=== PATIENT | male | born 1985 | race Two or more races ===

== ENCOUNTER 2020-10-11 14:04 | Outpatient (REF) | payer OTHER, SELFPAY ==
--- NOTE | 2020-10-11 16:16 | XR_ITS ---
EXAMINATION: XR SACROILIAC JOINTS CLINICAL INFORMATION: Pelvic pain. COMPARISON: None TECHNIQUE: 3 views of the sacroiliac joints FINDINGS: Bones and soft tissues are normal. No fracture. Alignment is anatomic. Sacroiliac joint spaces are well-maintained without erosions or surrounding sclerosis. XR/XR sacroiliac joint 1-2V IMPRESSION: Unremarkable sacroiliac joints.
--- NOTE | 2020-10-11 16:16 | XR_ITS ---
EXAMINATION: XR LUMBOSACRAL SPINE CLINICAL INFORMATION: Low back pain. COMPARISON: None TECHNIQUE: Three views of the lumbosacral spine. FINDINGS: The vertebral bodies and posterior elements are normal. The disc spaces are preserved and the vertebral alignment is normal. The paraspinal soft tissues are normal. XR/XR lumbar spine 2-3V IMPRESSION: Unremarkable lumbar spine.
--- NOTE | 2020-10-11 16:16 | XR_ITS ---
EXAMINATION: XR CERVICAL SPINE CLINICAL INFORMATION: Neck pain. COMPARISON: None TECHNIQUE: 3 views of the cervical spine were obtained. FINDINGS: There are no prevertebral soft tissue or bony abnormalities demonstrated. No compression fractures or subluxations are identified. Alignment is maintained at the atlanto-axial articulation. The disc spaces are preserved. No endplate changes are seen. The prevertebral soft tissues are normal. The foramina are patent. XR/XR cervical spine 3V IMPRESSION: Unremarkable cervical spine.
[2020-10-11 17:00] LABS: MANUAL DIFF FLAG NO
[2020-10-11 17:05] LABS: Basophils Percent Auto 0.5 % (0-2); Eosinophils Absolute Auto 0.4 X10*3/uL (0.0-0.4); Eosinophils Percent Auto 4.4 % (0-4); Hematocrit 40.4 % (42-52); Hemoglobin 13.5 g/dl (14.0-18.0); Imm Gran Abs Auto 0.07 X10*3/uL (0.00-0.03); Imm Gran Pct Auto 0.9 % (0.0-0.4); Lymphocytes Absolute Auto 2.5 X10*3/uL (1.2-4.9); Lymphocytes Percent Auto 31.4 % (20-40); Mean Corpuscular HGB Conc 33.4 g/dl (31.0-36.0); Mean Corpuscular Hemoglobin 30.6 pg (27.0-33.0); Mean Corpuscular Volume 91.6 fL (80-98); Mean Platelet Volume 9.4 fL (9.4-12.4); Monocytes Absolute Auto 0.7 X10*3/uL (0.1-1.2); Monocytes Percent Auto 8.8 % (2-11); Neutrophils Absolute Auto 4.3 X10*3/uL (2.0-8.3); Platelet Count 273 X10*3/uL (160-400); Red Blood Count 4.41 X10*6/uL (4.60-5.80); Red Cell Distribution Width 13.5 % (11.0-16.0)
[2020-10-11 17:26] LABS: Alanine Aminotransferase 21 U/L (0-40); Albumin Level 4.8 g/dL (3.5-5.0); Alkaline Phosphatase 80 U/L (39-117); Anion Gap 13 (12-20); Aspartate Amino Transferase 17 U/L (5-37); Bilirubin Total 0.5 mg/dL (0.0-1.0); Blood Urea Nitrogen 15 mg/dL (9-16); C Reactive Protein 0.29 mg/dL (< or = 0.50); Calcium 9.3 mg/dL (8.4-10.2); Carbon Dioxide 29 mmol/L (22-29); Chloride 104 mmol/L (96-108); Estimated Glomerular Filt Rate > 60; Glucose Random 74 mg/dL (60-115); Potassium 4.3 mmol/l (3.3-5.1); Sodium 142 mmol/L (135-145); Total Protein 7.4 g/dL (6.5-8.0)
[2020-10-11 18:44] LABS: Erythrocyte Sedimentation Rate 6 MM/HR (0-15)
[2020-10-15 17:51] LABS: HLA B27 Negative (Negative)
== END 2020-10-11 14:05 | disposition home or self-care (01) ==
LOC: HO.LAB 14:04
PROVIDERS: Visit Provider Student in an Organized Health Care Education/Training Program
DX: M13.80 Other specified arthritis, unspecified site (principal); Z79.899 Other long term (current) drug therapy
CPT/HCPCS: 36415; 72040; 72100; 72200; 80053; 85025; 85652; 86140; 86812; 99212

== ENCOUNTER 2020-11-13 14:20 | Outpatient (REF) | payer OTHER, SELFPAY ==
--- NOTE | 2020-11-13 14:22 | MR_ITS ---
EXAMINATION: MR PELVIS WITHOUT CONTRAST CLINICAL INFORMATION: Arthritis. Low back pain. COMPARISON: None TECHNIQUE: Anatomic and fluid sensitive MR sequences were used to examine the pelvis. Imaging was performed with attention to the region of the SI joints. No contrast administered. The technologist indicates the patient was unable to remain motionless. FINDINGS: There is some motion artifact. The SI joints are in normal alignment and are symmetric. There is no evidence of ankylosis or periarticular edema. There is no signal abnormality to suggest synovitis. There is no surrounding fluid. The visualized lower spine appears within normal limits. No paraspinal mass, collection or signal abnormality. The psoas and iliac is muscles are normal signal and symmetric in size. There are no enlarged pelvic lymph nodes. There is no free fluid. There is no suspicious pelvic mass. No suspicious abnormality of the nearly empty urinary bladder. MR/MR pelvis wo con IMPRESSION: 1. No evidence of sacroiliitis. No marrow edema or synovitis. 2. No etiology for back pain demonstrated.
== END 2020-11-13 14:21 | disposition home or self-care (01) ==
LOC: HO.MRI 14:20
PROVIDERS: Visit Provider Student in an Organized Health Care Education/Training Program
DX: M13.80 Other specified arthritis, unspecified site (principal)
CPT/HCPCS: 72195

== ENCOUNTER 2020-12-16 14:43 | Outpatient (REF) | payer OTHER, SELFPAY | END 2020-12-16 14:44 | disposition home or self-care (01) | LOC: HO.LAB 14:43 | PROVIDERS: Visit Provider Internal Medicine | DX: Z20.822 Contact with and (suspected) exposure to COVID-19 (principal) | CPT/HCPCS: 36415; C9803; U0003 ==

== ENCOUNTER → 2020-12-18 14:31 | Outpatient (BNVA) | payer OTHER, SELFPAY | PROVIDERS: Visit Provider Student in an Organized Health Care Education/Training Program | DX: Z76.89 Persons encountering health services in other specified circumstances (principal) ==

== ENCOUNTER 2021-01-04 07:10 | Outpatient (REF) | payer OTHER, SELFPAY ==
[2021-01-04 07:30] LABS: COVID-19 Test Negative (Negative)
== END 2021-01-04 07:11 | disposition home or self-care (01) ==
LOC: HO.EMPCOV 07:10
PROVIDERS: Visit Provider Internal Medicine
DX: Z20.822 Contact with and (suspected) exposure to COVID-19 (principal)
CPT/HCPCS: 36415; 87635; C9803

== ENCOUNTER 2021-03-03 15:16 | Outpatient (REF) | payer OTHER, SELFPAY ==
[2021-03-03 16:36] LABS: MANUAL DIFF FLAG NO
[2021-03-03 16:37] LABS: Basophils Percent Auto 0.5 % (0-2); Eosinophils Absolute Auto 0.3 X10*3/uL (0.0-0.4); Hematocrit 39.5 % (42-52); Hemoglobin 13.3 g/dl (14.0-18.0); Imm Gran Abs Auto 0.03 X10*3/uL (0.00-0.03); Imm Gran Pct Auto 0.4 % (0.0-0.4); Lymphocytes Percent Auto 26.4 % (20-40); Mean Corpuscular HGB Conc 33.7 g/dl (31.0-36.0); Mean Corpuscular Hemoglobin 31.1 pg (27.0-33.0); Mean Corpuscular Volume 92.5 fL (80-98); Mean Platelet Volume 9.9 fL (9.4-12.4); Monocytes Absolute Auto 0.7 X10*3/uL (0.1-1.2); Monocytes Percent Auto 9.9 % (2-11); Neutrophils Absolute Auto 4.4 X10*3/uL (2.0-8.3); Neutrophils Percent Auto 58.8 % (45-73); Platelet Count 248 X10*3/uL (160-400); Red Blood Count 4.27 X10*6/uL (4.60-5.80); Red Cell Distribution Width 12.8 % (11.0-16.0); White Blood Count 7.5 X10*3/uL (4.8-10.8)
[2021-03-03 17:11] LABS: Alanine Aminotransferase 18 U/L (0-40); Albumin Level 4.7 g/dL (3.5-5.0); Alkaline Phosphatase 84 U/L (39-117); Anion Gap 12 (12-20); Aspartate Amino Transferase 15 U/L (5-37); Bilirubin Total 0.5 mg/dL (0.0-1.0); Blood Urea Nitrogen 15 mg/dL (9-16); C Reactive Protein 0.23 mg/dL (< or = 0.50); Calcium 9.3 mg/dL (8.4-10.2); Carbon Dioxide 27 mmol/L (22-29); Chloride 108 mmol/L (96-108); Estimated Glomerular Filt Rate > 60; Glucose Random 85 mg/dL (60-115); Sodium 143 mmol/L (135-145); Total Protein 7.2 g/dL (6.5-8.0)
[2021-03-03 17:48] LABS: Erythrocyte Sedimentation Rate 3 MM/HR (0-15)
== END 2021-03-03 15:17 | disposition home or self-care (01) ==
LOC: HO.LAB 15:16
PROVIDERS: Visit Provider Student in an Organized Health Care Education/Training Program
DX: M13.80 Other specified arthritis, unspecified site (principal)
CPT/HCPCS: 36415; 80053; 85025; 85652; 86140

== ENCOUNTER 2021-05-10 09:29 | Outpatient (REF) | payer OTHER, SELFPAY ==
[2021-05-10 09:58] LABS: COVID-19 Test Negative (Negative); IDNOW Serial# 9DD0AD1C
== END 2021-05-10 09:30 | disposition home or self-care (01) ==
LOC: HO.LAB 09:29
PROVIDERS: Referring Provider Internal Medicine; Visit Provider Internal Medicine
DX: Z20.822 Contact with and (suspected) exposure to COVID-19 (principal)
CPT/HCPCS: 36415; 87635

== ENCOUNTER → 2021-06-24 08:02 | Outpatient (BNVA) | payer OTHER, SELFPAY | PROVIDERS: Visit Provider Student in an Organized Health Care Education/Training Program ==

== ENCOUNTER 2021-10-13 13:47 | Outpatient (REF) | payer SELFPAY ==
[2021-10-13 14:12] LABS: MANUAL DIFF FLAG NO
[2021-10-13 14:44] LABS: Basophils Absolute Auto 0.1 X10*3/uL (0.0-0.2); Basophils Percent Auto 0.7 % (0-2); Eosinophils Absolute Auto 0.5 X10*3/uL (0.0-0.4); Eosinophils Percent Auto 6.3 % (0-4); Hematocrit 40.8 % (42.0-52.0); Hemoglobin 13.6 g/dl (14.0-18.0); Imm Gran Abs Auto 0.07 X10*3/uL (0.00-0.03); Lymphocytes Absolute Auto 1.9 X10*3/uL (1.2-4.9); Lymphocytes Percent Auto 25.4 % (20-40); Mean Corpuscular HGB Conc 33.3 g/dl (31.0-36.0); Mean Corpuscular Hemoglobin 31.4 pg (27.0-33.0); Mean Corpuscular Volume 94.2 fL (80.0-98.0); Mean Platelet Volume 9.6 fL (9.4-12.4); Monocytes Absolute Auto 0.6 X10*3/uL (0.1-1.2); Monocytes Percent Auto 8.2 % (2-11); Neutrophils Absolute Auto 4.3 x10*3/uL (2.0-8.3); Neutrophils Percent Auto 58.4 % (45-73); Platelet Count 261 X10*3/uL (160-400); Red Blood Count 4.33 X10*6/uL (4.60-5.80); Red Cell Distribution Width 12.4 % (11.0-16.0); White Blood Count 7.4 X10*3/uL (4.8-10.8)
[2021-10-13 15:09] LABS: Alanine Aminotransferase 33 U/L (0-40); Albumin Level 4.4 g/dL (3.5-5.0); Alkaline Phosphatase 90 U/L (39-117); Anion Gap 10 (12-20); Aspartate Amino Transferase 18 U/L (5-37); Bilirubin Total 0.2 mg/dL (0.0-1.0); Blood Urea Nitrogen 10 mg/dL (9-16); C Reactive Protein 0.29 mg/dL (< or = 0.50); Calcium 9.2 mg/dL (8.4-10.2); Carbon Dioxide 29 mmol/L (22-29); Chloride 107 mmol/L (96-108); Estimated Glomerular Filt Rate > 60; Glucose Random 103 mg/dL (60-115); Potassium 4.1 mmol/L (3.3-5.1); Sodium 142 mmol/L (135-145); Total Protein 6.8 g/dL (6.5-8.0)
[2021-10-13 15:33] LABS: Erythrocyte Sedimentation Rate 5 MM/HR (0-15)
== END 2021-10-13 13:48 | disposition home or self-care (01) ==
LOC: HO.LAB 13:47
PROVIDERS: Visit Provider Nurse Practitioner Family
DX: M13.80 Other specified arthritis, unspecified site (principal)
CPT/HCPCS: 36415; 80053; 85025; 85652; 86140

== ENCOUNTER → 2021-10-14 13:59 | Outpatient (BNVA) | payer SELFPAY | PROVIDERS: Visit Provider Nurse Practitioner Family ==

== ENCOUNTER 2021-11-05 13:59 | Outpatient (REF) | payer OTHER, SELFPAY ==
[2021-11-07 20:32] LABS: TS Negative Control Passed; TS Panel A 0; TS Panel B 0; TS Positive Control Passed; TSpotTB Negative (Negative)
== END 2021-11-05 14:00 | disposition home or self-care (01) ==
LOC: HO.LAB 13:59
PROVIDERS: Visit Provider Nurse Practitioner Family
DX: Z11.1 Encounter for screening for respiratory tuberculosis (principal); M13.80 Other specified arthritis, unspecified site
CPT/HCPCS: 36415; 86481

== ENCOUNTER 2021-12-07 07:03 | Outpatient (REF) | payer OTHER, SELFPAY ==
[2021-12-07 07:45] LABS: COVID-19 Test Positive (Negative)
== END 2021-12-07 07:04 | disposition home or self-care (01) ==
LOC: HO.LAB 07:03
PROVIDERS: Visit Provider Internal Medicine
DX: Z20.822 Contact with and (suspected) exposure to COVID-19 (principal)
CPT/HCPCS: 87635

== ENCOUNTER 2022-02-05 13:35 | Outpatient (REF) | payer OTHER, SELFPAY ==
[2022-02-05 14:08] LABS: MANUAL DIFF FLAG NO
[2022-02-05 14:10] LABS: Basophils Percent Auto 0.4 % (0-2); Eosinophils Absolute Auto 0.2 X10*3/uL (0.0-0.4); Eosinophils Percent Auto 3.4 % (0-4); Hematocrit 41.1 % (42.0-52.0); Hemoglobin 13.9 g/dl (14.0-18.0); Imm Gran Abs Auto 0.03 X10*3/uL (0.00-0.03); Imm Gran Pct Auto 0.4 % (0.0-0.4); Lymphocytes Absolute Auto 2.8 X10*3/uL (1.2-4.9); Lymphocytes Percent Auto 39.5 % (20-40); Mean Corpuscular HGB Conc 33.8 g/dl (31.0-36.0); Mean Corpuscular Hemoglobin 31.4 pg (27.0-33.0); Mean Platelet Volume 9.3 fL (9.4-12.4); Monocytes Absolute Auto 0.6 X10*3/uL (0.1-1.2); Monocytes Percent Auto 9.2 % (2-11); Neutrophils Absolute Auto 3.3 x10*3/uL (2.0-8.3); Neutrophils Percent Auto 47.1 % (45-73); Platelet Count 260 X10*3/uL (160-400); Red Blood Count 4.42 X10*6/uL (4.60-5.80); Red Cell Distribution Width 12.8 % (11.0-16.0)
[2022-02-05 14:49] LABS: Alanine Aminotransferase 19 U/L (0-40); Albumin Level 4.6 g/dL (3.5-5.0); Alkaline Phosphatase 84 U/L (39-117); Anion Gap 14 (12-20); Aspartate Amino Transferase 16 U/L (5-37); Bilirubin Total 0.6 mg/dL (0.0-1.0); Blood Urea Nitrogen 10 mg/dL (9-16); C Reactive Protein 0.08 mg/dL (< or = 0.50); Calcium 9.7 mg/dL (8.4-10.2); Carbon Dioxide 24 mmol/L (22-29); Chloride 107 mmol/L (96-108); Estimated Glomerular Filt Rate > 60; Glucose Random 93 mg/dL (60-115); Potassium 4.2 mmol/L (3.3-5.1); Sodium 141 mmol/L (135-145); Total Protein 7.3 g/dL (6.5-8.0)
[2022-02-05 14:57] LABS: Erythrocyte Sedimentation Rate 2 MM/HR (0-15)
== END 2022-02-05 13:36 | disposition home or self-care (01) ==
LOC: HO.LAB 13:35
PROVIDERS: PCP Student in an Organized Health Care Education/Training Program; Visit Provider Nurse Practitioner Family
DX: M13.80 Other specified arthritis, unspecified site (principal)
CPT/HCPCS: 36415; 80053; 85025; 85652; 86140

== ENCOUNTER → 2022-03-26 14:28 | Outpatient (BNVA) | payer OTHER, SELFPAY | PROVIDERS: Visit Provider Nurse Practitioner Family | DX: Z13.89 Encounter for screening for other disorder (principal) ==

== ENCOUNTER 2022-06-23 14:23 | Outpatient (REF) | payer OTHER, SELFPAY ==
--- NOTE | ~2022-06-23 | CT_ITS ---
EXAMINATION: CT SOFT TISSUE NECK WITH CONTRAST CLINICAL INFORMATION: 37-year-old with dysphagia. COMPARISON: None TECHNIQUE: Following the intravenous administration of 60 mL of Omnipaque 350 intravenous contrast, helical imaging was performed in the axial plane with generation of coronal and sagittal reformatted images. This CT examination was performed using dose optimization techniques as appropriate, variously including the following: *Automated exposure control *Adjustment of mA and/or kV according to patient size (this includes techniques or standardized protocols for targeted exams where dose is matched to indication/reason for exam; i.e. extremities or head) *Use of iterative reconstruction technique DLP: 700.00 mGy-cm FINDINGS: Skull Base: The visualized intracranial structures appear grossly unremarkable within the limitations of the exam. The visualized calvarium is intact. The mastoids and middle ear cavities are unopacified. There is nasal septal deviation to the right with a nasal septal spur encroaching on the right middle meatus and right middle turbinate. The visualized paranasal sinuses are unopacified. The visualized intraorbital soft tissue structures are within normal limits. The bony skull base is grossly intact. Suprahyoid Neck: The nasopharynx, retropharynx, assistant professor of economics and parapharyngeal spaces appear symmetric and within normal limits. There are multiple small calcified tonsilloliths within the palatine tonsils bilaterally. The oropharynx is smoothly contoured. Unremarkable appearance to the soft palate. The major salivary glands appear within normal limits. The visualized oral tongue, base of the tongue and floor of the mouth structures are symmetric and intact. Scattered nonenlarged, nonpathologic-appearing lymph nodes are seen in the submandibular spaces and submental region. Bilateral IJ chain lymph nodes are noted, the largest of which measures 1.3 x 0.87 m on the right and 1.5 x 0.7 cm on the left with a nonpathologic appearance. Lingual tonsils, vallecula and epiglottis appear unremarkable. Infrahyoid Neck: The hypopharynx and larynx appear within normal limits. There is a subcentimeter partially calcified left thyroid lobe nodule. Otherwise the thyroid gland appears grossly within normal limits. Scattered nonenlarged bilateral IJ chain and level 5 lymph nodes are noted bilaterally. Normal appearance to the tracheoesophageal grooves. Visualized cervical esophagus appears grossly unremarkable within the limitations of the exam. Upper Chest: The visualized lung parenchyma is within normal limits. The visualized mediastinum is unremarkable. Skeletal: Skeletal structures appear intact. No significant cervical or thoracic spondylosis. Other Comments: None. CT/CT soft tissue neck w con IMPRESSION: 1. No specific cause for dysphagia identified. No soft tissue masses or lymphadenopathy. No significant spondylosis. 2. Subcentimeter left thyroid lobe nodule. Correlate with clinical history and follow-up as per clinical indications. 3. Marked nasal septal deviation to the right with a nasal septal spur encroaching on the right middle meatus.
[2022-06-23] MEDS: iohexoL 350 MG/ML 100 ML INFUS..BTL IV (15:21)
== END 2022-06-23 14:24 | disposition home or self-care (01) ==
LOC: HO.CT 14:23
PROVIDERS: Visit Provider Otolaryngology
DX: R13.10 Dysphagia, unspecified (principal)
CPT/HCPCS: 70491; Q9967

== ENCOUNTER 2022-07-16 15:01 | Outpatient (REF) | payer OTHER, SELFPAY ==
[2022-07-16 15:16] LABS: MANUAL DIFF FLAG NO
[2022-07-16 15:51] LABS: Basophils Percent Auto 0.5 % (0-2); Eosinophils Absolute Auto 0.2 X10*3/uL (0.0-0.4); Eosinophils Percent Auto 2.6 % (0-4); Hematocrit 42.1 % (42.0-52.0); Hemoglobin 14.2 g/dl (14.0-18.0); Imm Gran Abs Auto 0.06 X10*3/uL (0.00-0.03); Imm Gran Pct Auto 0.7 % (0.0-0.4); Lymphocytes Absolute Auto 2.6 X10*3/uL (1.2-4.9); Lymphocytes Percent Auto 32.2 % (20-40); Mean Corpuscular HGB Conc 33.7 g/dl (31.0-36.0); Mean Corpuscular Hemoglobin 31.1 pg (27.0-33.0); Mean Corpuscular Volume 92.1 fL (80.0-98.0); Mean Platelet Volume 9.7 fL (9.4-12.4); Monocytes Absolute Auto 0.7 X10*3/uL (0.1-1.2); Monocytes Percent Auto 8.8 % (2-11); Neutrophils Absolute Auto 4.5 x10*3/uL (2.0-8.3); Neutrophils Percent Auto 55.2 % (45-73); Platelet Count 259 X10*3/uL (160-400); Red Blood Count 4.57 X10*6/uL (4.60-5.80); Red Cell Distribution Width 12.6 % (11.0-16.0); White Blood Count 8.1 X10*3/uL (4.8-10.8)
[2022-07-16 16:13] LABS: Alanine Aminotransferase 18 U/L (0-40); Aspartate Amino Transferase 16 U/L (5-37); Estimated Glomerular Filt Rate > 60
[2022-07-16 16:23] LABS: Erythrocyte Sedimentation Rate 3 MM/HR (0-15)
[2022-07-16 16:47] LABS: Thyroid Stimulating Hormone 0.85 uIU/mL (0.32-4.0)
== END 2022-07-16 15:02 | disposition home or self-care (01) ==
LOC: HO.LAB 15:01
PROVIDERS: Absent Provider Otolaryngology; Visit Provider Nurse Practitioner Family
DX: E04.1 Nontoxic single thyroid nodule (principal); M13.80 Other specified arthritis, unspecified site; Z79.899 Other long term (current) drug therapy
CPT/HCPCS: 36415; 82565; 84443; 84450; 84460; 85025; 85652; 86140

== ENCOUNTER 2022-08-26 15:01 | Outpatient (REF) | payer OTHER, SELFPAY ==
--- NOTE | ~2022-08-26 | US_ITS ---
EXAMINATION: US THYROID CLINICAL INFORMATION: Left lobe nodule. COMPARISON: CT soft tissue neck 06/23/2022. TECHNIQUE: Linear transducer grayscale and color Doppler examination with attention to the region of the thyroid. FINDINGS: SIZE: Measurements of the thyroid lobes and nodules are given in sagittal, anteroposterior and transverse dimensions respectively. Right Thyroid Lobe: 5.2 x 1.8 x 2.0 cm, volume 9.8 mL. Parenchyma: The gland echotexture is homogeneous. Thyroid vascularity is normal. Left Thyroid Lobe: 5.1 x 1.8 x 2.0 cm, volume 9.6 mL. Parenchyma: The gland echotexture is homogeneous. Thyroid vascularity is normal. Isthmus: 0.3 cm in maximum AP dimension. Estimated total number of nodules greater than or equal to 1 cm: 1. Cell Attendant Helper nodules are described as follows: 1. Location: Left mid. Size: 1.1 x 0.9 x 1.0 cm, volume 0.5 mL. Nodule characteristics: Composition: Solid (2). Echogenicity: Hyperechoic (1). Shape: Not taller than wide (0). Margins: Smooth (0). Echogenic Foci: None (0). ACR TI-RADS total points: 3. ACR TI-RADS category: 3. 2. Location: Left inferior. Size: 0.5 x 0.5 x 0.5 cm, volume 0.1 mL. Nodule characteristics: Composition: Solid (2). Echogenicity: Hyperechoic (1). Shape: Not taller than wide (0). Margins: Ill-defined (0). Echogenic Foci: None (0). ACR TI-RADS total points: 3. ACR TI-RADS category: 3. NODES: No lymphadenopathy is seen in the tissue surrounding the thyroid gland. US/US thyroid IMPRESSION: 1.1 cm nodule left lobe nonsuspicious, category 3. Recommend continued ultrasound thyroid follow-up in one year. ACR TI-RADS RECOMMENDATION REFERENCE: Ultrasound-guided fine-needle aspiration, followup ultrasound, no further follow up. * TR1 (0 point) and TR 2 (2 points): No FNA or follow up. * TR3 (3 points): FNA if more than or equal to 2.5 cm in maximum dimension, followup ultrasound in 1, 3 and 5 years if 1.5 to 2.4 cm in maximum dimension. * TR4 (4-6 points): FNA if more than or equal to 1.5 cm in maximum dimension, followup ultrasound in 1, 2, 3 and 5 years if 1 to 1.4 cm in maximum dimension. * TR5 (more than or equal to 7 points): FNA if more than or equal to 1 cm in maximum dimension, followup ultrasound every year for 5 years if 0.5 to 0.9 cm in maximum dimension. * TR3, TR4 or TR5 nodules that are below the size threshold for followup receive no follow up.
== END 2022-08-26 15:02 | disposition home or self-care (01) ==
LOC: HO.US 15:01
PROVIDERS: Visit Provider Otolaryngology
DX: E04.1 Nontoxic single thyroid nodule (principal)
CPT/HCPCS: 76536

== ENCOUNTER 2023-01-20 11:42 | Day surgery (SDC) | payer OTHER, SELFPAY ==
[2023-01-15 16:31] VITALS: BMI 29.2
--- NOTE | 2023-01-19 13:43 | HO.ANESPROP2 ---
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) Seronegative arthritis (Acute) Past Medical History Medical History Seronegative arthritis Social History Social History Alcohol intake: never Patient Tobacco Use Status: Never used Tobacco Tobacco use type: Cigarette Cigarettes Per Day: 1 Meds Allergies Allergy/AdvReac Type Severity Reaction Status Date / Time No Known Allergies Allergy Verified 09/01/22 13:21 Home Medications Medication Instructions Recorded Confirmed Last Taken Type acetaminophen 500 mg tablet 1,000 mg PO Q6H PRN 10/11/20 09/01/22 Unknown History (Tylenol Extra Strength) celecoxib 200 mg capsule (Celebrex) 200 mg PO DAILY PRN 03/26/22 09/01/22 Unknown History methotrexate sodium 2.5 mg tablet 7.5 mg PO QWEEK 09/01/22 09/01/22 Unknown History Exam Exam Date and Time: January 19, 2023 1343 Height,Weight and Vital Signs: Height 6 ft Weight 97.976 kg Assessment and Plan Assessment Anesthesia Assessment: Chart Reviewed Documented by User: Petr Greco MD 01/20/23 18:13 HPI - Anesthesia Eval Consult details Narrative: 37yo M for Upper Endoscopy Arthritis PMFSH Past Medical History Medical History Seronegative arthritis Functional capacity: independent ambulation Family History Family history of problems with anesthesia: No Surgical History History of Problems with Anesthesia: No Social History Social History Alcohol intake: never Patient Tobacco Use Status: Never used Tobacco Tobacco use type: Cigarette Cigarettes Per Day: 1 Meds Allergies Allergy/AdvReac Type Severity Reaction Status Date / Time No Known Allergies Allergy Verified 09/01/22 13:21 Home Medications Medication Instructions Recorded Confirmed Last Taken Type acetaminophen 500 mg tablet 1,000 mg PO Q6H PRN 10/11/20 09/01/22 Unknown History (Tylenol Extra Strength) celecoxib 200 mg capsule (Celebrex) 200 mg PO DAILY PRN 03/26/22 09/01/22 Unknown History methotrexate sodium 2.5 mg tablet 7.5 mg PO QWEEK 09/01/22 09/01/22 Unknown History Exam Airway Mallampati Class: III TM Dist: >3cm Neck ROM: Full Loose/Missing/Broken Teeth: Yes Heart: S1,S2 Lungs: b/l breath sounds Assessment and Plan Assessment Anesthesia Assessment: Anesthesia Plan Discussed Final Anesthetic Review Family History of Problems with Anesthesia: No History of Problems with Anesthesia: No ASA Class: II Final Preanesthetic Review: Meds/Allgs Chart Reviewed and Consent Obtained/Reviewed Patient Risk: Intermediate Procedure Risk: Intermediate Anesthetic Plan Anesthetic Plan: MAC: Disposition: Standard PACU
[2023-01-20 12:19] VITALS: BP 97/66; PULSE 83; RESP 15; TEMP 36.4; O2SAT 95
[2023-01-20] MEDS: Lactated Ringers 1,000 ML 100 ML IVCONT (12:21)
--- NOTE | 2023-01-20 12:43 | MHC.SHP ---
Pre-Procedural Eval Section A Date of Service: 01/20/23 Section B Chief Complaint: Functional dyspepsia Details of Present Illness: dysphagia, reflux Relevant Family History (Specify if Yes): No Relevant Social History: None Present Medications: see Short Stay Collaborative assessment Medical History: Significant History (seroneg arthritis) History of Previous Operations: No relevant previous surgery Allergies: Allergies Allergy/AdvReac Type Severity Reaction Status Date / Time No Known Allergies Allergy Verified 09/01/22 13:21 Review of Systems Sugical H&P ROS: Negative: Constitution, Cardiovascular, Respiratory, Neurological, Psychiatric, Hem-Onc, Allergic/Immunologic, Gastrointestinal, Genitourinary, Musculoskeletal, Integumentary, Endocrine and Eyes/Ears/Nose/Throat Exam Surgical H&P Exam: Normal: HEENT, Normal: Heart, Normal: Lungs, Normal: Extremities, Normal: Abdomen, Normal: Skin and Normal: Neurological Plan Diagnosis/Plan: Unchanged I have reviewed the history and physical and performed a pertinent physical examination on my patient. No changes have occurred unless specified. Time Spent With Patient Time: Total time managing care of this patient today ____ minutes.
--- NOTE | 2023-01-20 12:49 | W.PM.OPN ---
Operative Note Operative Note Date of Service: 01/20/23 Narrative: Procedure Description: EGD Indication: GERD, dysphagia Anesthesia: MAC FLEXIBLE TRANSORAL UPPER GASTROINTESTINAL ENDOSCOPY UPPER ENDOSCOPY Consent: Indications for the procedure and potential complications of bleeding, perforation, reaction to medications and missed diagnosis were discussed with the patient and informed consent was obtained. Instrument: Olympus GIF H 190 J mid size upper endoscope Monitoring: Vital signs and clinical assessment, continuous EKG monitoring, Pulse oximetry, Carbon Dioxide monitoring and blood pressure monitoring were done throughout the procedure. Procedure: The patient was placed in the left lateral decubitis position and pre-procedure medications were administered and a bite block was placed. The endoscope was inserted into the mouth and advanced under direct vision to the third part of duodenum. A careful inspection was made as the upper endoscope was withdrawn including a retroflexed examination of the proximal stomach; Findings and interventions are described below. Findings: Larynx:normal Esophagus: GE junction at 44 cm, diaphragm hiatus at 44 cm, mild erythema at GEJ with incompetent LES, bx taken from GEJ, distal esophagus and proximal esophagus. Few white patches noted in distal esophagus appearing to be adeline. Balloon dilation done mid and proximal esophagus over the UES to 18 mm with no tears seen Stomach: Patchy gastric erythema. Biopsies were obtained. Grade 3 flap valve on retroflexed examination of the cardia. Incompetent LES noted Duodenum: Normal bulb and descending duodenum, bx taken Intervention: Biopsies as noted above, balloon dilation Impression/Findings: possible barretts possible adeline mild esophagitis patchy gastritis PLAN: await biopsy results check compliance with PPI, may need dose increase or change of formulation --other options are ARAT vs fundoplication, magnetic sphincter
[2023-01-20 13:35] VITALS: BP 98/55; PULSE 76; RESP 16; TEMP 36.4; O2SAT 96
[2023-01-20 14:02] VITALS: BP 99/63; PULSE 75; RESP 18; TEMP 36.4; O2SAT 98
== END 2023-01-20 15:22 | disposition home or self-care (01) ==
PROVIDERS: Visit Provider Internal Medicine Gastroenterology
PROC: 0DJ08ZZ Inspection of Upper Intestinal Tract, Via Natural or Artificial Opening Endoscopic (ICD-10-PCS; CPT 43235; principal; 2023-01-20 12:30)
DX: K30 Functional dyspepsia (principal); K21.9 Gastro-esophageal reflux disease without esophagitis; R13.10 Dysphagia, unspecified; K29.50 Unspecified chronic gastritis without bleeding; B96.81 Helicobacter pylori [H. pylori] as the cause of diseases classified elsewhere; B37.81 Candidal esophagitis; K22.4 Dyskinesia of esophagus; M06.00 Rheumatoid arthritis without rheumatoid factor, unspecified site; K44.9 Diaphragmatic hernia without obstruction or gangrene; Z79.899 Other long term (current) drug therapy
CPT/HCPCS: 43249; 43239; 88305; 88312; 88342; C1726

== ENCOUNTER 2023-02-12 14:41 | Outpatient (REF) | payer OTHER, SELFPAY ==
[2023-02-12 15:00] LABS: MANUAL DIFF FLAG NO
[2023-02-12 17:48] LABS: Basophils Absolute Auto 0.1 X10*3/uL (0.0-0.2); Basophils Percent Auto 0.6 % (0-2); Eosinophils Absolute Auto 0.2 X10*3/uL (0.0-0.4); Eosinophils Percent Auto 2.1 % (0-4); Hematocrit 42.7 % (42.0-52.0); Hemoglobin 14.3 g/dl (14.0-18.0); Imm Gran Abs Auto 0.05 X10*3/uL (0.00-0.03); Imm Gran Pct Auto 0.6 % (0.0-0.4); Lymphocytes Percent Auto 35.6 % (20-40); Mean Corpuscular HGB Conc 33.5 g/dl (31.0-36.0); Mean Corpuscular Hemoglobin 31.3 pg (27.0-33.0); Mean Corpuscular Volume 93.4 fL (80.0-98.0); Mean Platelet Volume 10.3 fL (9.4-12.4); Monocytes Absolute Auto 0.6 X10*3/uL (0.1-1.2); Monocytes Percent Auto 6.5 % (2-11); Neutrophils Absolute Auto 4.7 x10*3/uL (2.0-8.3); Neutrophils Percent Auto 54.6 % (45-73); Platelet Count 245 X10*3/uL (160-400); Red Blood Count 4.57 X10*6/uL (4.60-5.80); Red Cell Distribution Width 12.8 % (11.0-16.0); White Blood Count 8.6 X10*3/uL (4.8-10.8)
[2023-02-12 18:19] LABS: Alanine Aminotransferase 39 U/L (0-40); Albumin Level 4.6 g/dL (3.5-5.0); Alkaline Phosphatase 78 U/L (39-117); Anion Gap 14 (12-20); Aspartate Amino Transferase 28 U/L (5-37); Bilirubin Total 0.6 mg/dL (0.0-1.0); Blood Urea Nitrogen 12 mg/dL (9-16); C Reactive Protein < 0.10 mg/dL (< or = 0.50); Calcium 9.4 mg/dL (8.4-10.2); Carbon Dioxide 27 mmol/L (22-29); Chloride 107 mmol/L (96-108); Estimated Glomerular Filt Rate > 60; Glucose Random 77 mg/dL (60-115); Sodium 144 mmol/L (135-145)
[2023-02-12 18:29] LABS: Erythrocyte Sedimentation Rate 4 MM/HR (0-15)
== END 2023-02-12 14:42 | disposition home or self-care (01) ==
LOC: HO.LAB 14:41
PROVIDERS: Visit Provider Nurse Practitioner Family
DX: M13.80 Other specified arthritis, unspecified site (principal); Z20.2 Contact with and (suspected) exposure to infections with a predominantly sexual mode of transmission
CPT/HCPCS: 36415; 80053; 85025; 85652; 86140

== ENCOUNTER → 2023-03-01 11:46 | Outpatient (BNVA) | payer OTHER, SELFPAY | PROVIDERS: Visit Provider Internal Medicine | DX: Z13.89 Encounter for screening for other disorder (principal) ==

== ENCOUNTER 2023-06-17 13:36 | Outpatient (AMB) | payer OTHER, SELFPAY ==
--- NOTE | 2023-06-17 13:38 | A.OFFVIS_ITS ---
Intake Vital Signs 06/17/23 13:41 Height 6 ft Weight 218 lb BMI 29.6 BP 98/58 L Blood Pressure Location Rt brachial Position Sitting Respiration 16 Pulse 68 Pulse Source Pulse Oximeter Temp 97.1 F Temp Source Temporal Artery Scan Pulse Oximetry (%) 98 Oxygen Delivery Method Room Air Intake Visit Reasons: Follow Up Allergies No Known Allergies Allergy (Verified 06/17/23 13:43) Medication List - Last Reconciled 06/17/23 by Shirin Koroma MD acetaminophen (Tylenol Extra Strength) 1,000 mg PO Q6H PRN adalimumab (Humira(CF) Pen) 40 mg (0.4 mL) subcut Q2W esomeprazole magnesium (Nexium) 20 mg PO DAILY folic acid 1 mg PO DAILY methotrexate sodium 15 mg PO QWEEK metronidazole 500 mg PO TID 14 days sucralfate 10 mL PO BID HPI HPI Comments History of Present Illness Details This is a 38-year-old male with a seronegative arthritis (seronegative RA/PsA) who presents for follow-up. He is currently on 15 mg of methotrexate once weekly and Humira every other week. Doing fairly well overall. Gets intermittent pain on the outer aspect of his left ankle, usually in the morning, occasionally gets pain on the outside of his elbows associated with some stiffness. Takes an NSAID about once a month as needed for joint pain. Denies any psoriasis skin rashes however occasionally gets eczema like skin rashes on the dorsal aspect of his fingers rapidly improved with a steroid cream. [facility] Medical History Seronegative arthritis Thyroid nodule Family History Father HTN (hypertension) Psoriasis Mother No known health problems Maternal Aunt Rheumatoid arthritis Social History Alcohol intake: never Patient Tobacco Use Status: Never used Tobacco Tobacco use type: Cigarette Cigarettes Per Day: 1 Review of Systems [employer] [facility] [employer] Reports arthralgias Physical Exam Vital Signs: Last Vital Signs Temp 97.1 F 06/17/23 13:41 Pulse 68 06/17/23 13:41 Resp 16 06/17/23 13:41 BP 98/58 L 06/17/23 13:41 Pulse Ox 98 06/17/23 13:41 Oxygen Delivery Method Room Air 06/17/23 13:41 BMI result Body Mass Index 29.6 Const General: cooperative, healthy appearing and comfortable Nutritional Appearance: overweight Orientation/consciousness: patient oriented x3 Limitations: no limitations HEENT Head: Yes normocephalic and Yes atraumatic Mouth: moist mucous membranes Resp Effort & Inspection: normal respiratory effort and able to speak in complete sentences Skin General skin exam: no rashes or lesions noted Neuro General: patient oriented x3 Extrem Other: No active synovitis. Marly test 10-15 cm Negative Jennie's test bilaterally No nail pitting Results Reviewed Results Reviewed: US hands: no synovitis MRI right hand with enhancement around MCP joints and tenosynovitis. MRI pelvis: no sacroilitis Xray of L spine and C spine: unremarkable Assessment & Plan Assessment & Plan (1) Seronegative arthritis: Comment: Plaquenil: 02/2020 Sulfasalazine: 02/2020 Methotrexate: 03/2020-present Humira: September 2021- present Code(s): M13.80 - Other specified arthritis, unspecified site Plan: This is a 38-year-old male with seronegative arthritis (seronegative RA versus PsA) has a history of psoriasis in his family who presents for follow-up. Doing well overall on methotrexate 6 tablets once weekly and Humira every other week. Gets intermittent joint aches and stiffness. Continue methotrexate 15 mg once weekly and Humira every other week. Labs today and before next visit (2) assistant terminal manager methotrexate user: Code(s): Z79.899 - Other local company intermodal truck driver (current) drug therapy Plan: Side effects of MTX were discussed with the patient in detail including oral ulcers, elevated LFTs, abdominal discomfort, and possible pancytopenia. Will monitor with frequent labs to monitor for side effects. Advised patient to take folic acid daily to prevent complications of MTX. Labs today and before next visit in 5 months Check Infectious screening labs Orders: Orders Comprehensive Met. Panel 5 Months Z79.899 - Other shelter (current) drug therapy C Reactive Protein 5 Months Z79.899 - Other shelter (current) drug therapy Complete Blood Count Auto Diff 5 Months Z79.899 - Other local company intermodal truck driver (current) drug therapy Erythrocyte Sedimentation Rate 5 Months Z79.899 - Other shelter (current) drug therapy Comprehensive Met. Panel Today Z79.899 - Other local company intermodal truck driver (current) drug therapy C Reactive Protein Today Z79.899 - Other shelter (current) drug therapy Complete Blood Count Auto Diff Today Z79.899 - Other shelter (current) drug therapy Erythrocyte Sedimentation Rate Today Z79.899 - Other local company intermodal truck driver (current) drug therapy Hepatitis A,B,C Profile Today Z11.59 - Encounter for screening for other viral diseases T Spot TB Today Z11.7 - Encounter for testing for latent tuberculosis infection Coding Level of Care Code Est Pt Level 3 (91981) Diagnoses Seronegative arthritis M13.80 assistant terminal manager methotrexate user Z79.899
[2023-06-17 13:41] VITALS: BP 98/58; PULSE 68; RESP 16; TEMP 36.2; O2SAT 98; BMI 29.6
== END 2023-06-17 14:08 | disposition home or self-care (01) ==
PROVIDERS: Visit Provider Student in an Organized Health Care Education/Training Program
DX: M13.80 Other specified arthritis, unspecified site (principal); Z79.899 Other long term (current) drug therapy
CPT/HCPCS: 99213

== ENCOUNTER → 2023-06-17 13:36 | Outpatient (BNVA) | payer OTHER, SELFPAY | PROVIDERS: Visit Provider Student in an Organized Health Care Education/Training Program ==

== ENCOUNTER 2023-06-29 10:32 | Outpatient (REF) | payer OTHER, SELFPAY ==
--- NOTE | ~2023-06-29 | US_ITS ---
Ultrasound-guided biopsy of the left thyroid nodule INDICATIONS: 1.26 x 1.09 x 0.88 cm echogenic nodule in the midportion of the left lobe of the thyroid gland After informed written consent was obtained an official timeout was performed immediately prior to the procedure. PROCEDURE: Under ultrasound guidance 3 needle aspirates were obtained utilizing a 25-gauge needle. The specimens were analyzed by the pathology department and felt to be inadequate for diagnostic purposes. 2 additional biopsies were then obtained utilizing a 22-gauge biopsy needle. The patient tolerated procedure well. US/US biopsy thyroid IMPRESSION: Ultrasound-guided biopsy of the echogenic lesion in the posterior aspect of the left lobe of the thyroid gland
[2023-06-29] MEDS: Lidocaine HCl 1 % MPF 5 ML VIAL SUBCUT (12:03)
== END 2023-06-29 10:33 | disposition home or self-care (01) ==
LOC: HO.US 10:32
PROVIDERS: Visit Provider Internal Medicine
DX: E04.1 Nontoxic single thyroid nodule (principal)
CPT/HCPCS: 10005; 88172; 88173; 88177

== ENCOUNTER → 2023-06-29 10:34 | Outpatient (BNV) | payer OTHER, SELFPAY | PROVIDERS: Visit Provider Radiology Vascular & Interventional Radiology | DX: E04.1 Nontoxic single thyroid nodule (principal) | CPT/HCPCS: 10005 ==

== ENCOUNTER 2023-07-19 13:28 | Outpatient (REF) | payer OTHER, SELFPAY ==
[2023-07-21 14:47] LABS: H Pylori Breath Test Negative (Negative)
== END 2023-07-19 13:29 | disposition home or self-care (01) ==
LOC: HO.LNP 13:28
PROVIDERS: Visit Provider Internal Medicine Gastroenterology
DX: Z11.2 Encounter for screening for other bacterial diseases (principal)
CPT/HCPCS: 83013

== ENCOUNTER 2023-07-28 14:31 | Outpatient (REF) | payer OTHER, SELFPAY ==
[2023-07-28 14:49] LABS: MANUAL DIFF FLAG NO
[2023-07-28 15:18] LABS: Basophils Percent Auto 0.4 % (0-2); Eosinophils Absolute Auto 0.2 X10*3/uL (0.0-0.4); Hematocrit 41.6 % (42.0-52.0); Hemoglobin 14.7 g/dl (14.0-18.0); Imm Gran Abs Auto 0.04 X10*3/uL (0.00-0.03); Imm Gran Pct Auto 0.6 % (0.0-0.4); Lymphocytes Absolute Auto 3.2 X10*3/uL (1.2-4.9); Lymphocytes Percent Auto 44.4 % (20-40); Mean Corpuscular HGB Conc 35.3 g/dl (31.0-36.0); Mean Corpuscular Hemoglobin 31.5 pg (27.0-33.0); Mean Corpuscular Volume 89.1 fL (80.0-98.0); Mean Platelet Volume 9.7 fL (9.4-12.4); Monocytes Absolute Auto 0.5 X10*3/uL (0.1-1.2); Monocytes Percent Auto 7.2 % (2-11); Neutrophils Absolute Auto 3.2 x10*3/uL (2.0-8.3); Neutrophils Percent Auto 44.4 % (45-73); Platelet Count 239 X10*3/uL (160-400); Red Blood Count 4.67 X10*6/uL (4.60-5.80); Red Cell Distribution Width 12.9 % (11.0-16.0); White Blood Count 7.2 X10*3/uL (4.8-10.8)
[2023-07-28 15:55] LABS: Erythrocyte Sedimentation Rate 2 MM/HR (0-15)
[2023-07-28 17:00] LABS: Alanine Aminotransferase 49 U/L (0-40); Albumin Level 4.7 g/dL (3.5-5.0); Alkaline Phosphatase 78 U/L (39-117); Anion Gap 14 (12-20); Aspartate Amino Transferase 28 U/L (5-37); Bilirubin Total 0.7 mg/dL (0.0-1.0); Blood Urea Nitrogen 11 mg/dL (9-16); C Reactive Protein 0.12 mg/dL (< or = 0.50); Calcium 9.9 mg/dL (8.4-10.2); Carbon Dioxide 26 mmol/L (22-29); Chloride 107 mmol/L (96-108); Estimated Glomerular Filt Rate > 60; Glucose Random 100 mg/dL (60-115); Potassium 3.6 mmol/L (3.3-5.1); Sodium 143 mmol/L (135-145); Total Protein 7.4 g/dL (6.5-8.0)
[2023-07-28 17:16] LABS: Free T4 (Free Thyroxine) 1.06 ng/dL (0.71-1.85)
[2023-07-28 17:17] LABS: Thyroid Stimulating Hormone 1.14 uIU/mL (0.32-4.0)
[2023-07-29 08:45] LABS: HBS Num1 259.38 mIU/mL (0-7.99); HBc Num1 0.05 S/CO (0.00-0.79); HBsAGNum1 0.39 S/CO (0.00-0.99); Hepatitis A Antibody IgM 0.16 Index (0-0.79); Hepatitis B Core Antibody Nonreactive (Nonreactive); Hepatitis B Surface Antigen Negative (Negative); ~HepC Num1 0.09 S/CO (0.00-0.79); ~Hepatitis A Antibody IgM Nonreactive (Nonreactive); ~Hepatitis B Surface Antibody REACTIVE (Nonreactive); ~Hepatitis C Antibody Nonreactive (Nonreactive)
[2023-07-30 22:24] LABS: TS Negative Control Passed; TS Panel A 0; TS Panel B 0; TS Positive Control Passed; TSpotTB Negative (Negative)
== END 2023-07-28 14:32 | disposition home or self-care (01) ==
LOC: HO.LAB 14:31
PROVIDERS: PCP Student in an Organized Health Care Education/Training Program; Visit Provider Internal Medicine
DX: Z11.7 Encounter for testing for latent tuberculosis infection (principal); Z11.59 Encounter for screening for other viral diseases; E04.1 Nontoxic single thyroid nodule; Z72.89 Other problems related to lifestyle; Z79.899 Other long term (current) drug therapy
CPT/HCPCS: 36415; 80053; 84439; 84443; 85025; 85652; 86140; 86481; 86704; 86706; 86709; 86803; 87340

== ENCOUNTER 2023-11-19 15:41 | Outpatient (REF) | payer OTHER, SELFPAY ==
[2023-11-19 15:51] LABS: MANUAL DIFF FLAG NO
[2023-11-19 16:36] LABS: Basophils Absolute Auto 0.1 X10*3/uL (0.0-0.2); Basophils Percent Auto 0.6 % (0-2); Eosinophils Absolute Auto 0.2 X10*3/uL (0.0-0.4); Eosinophils Percent Auto 2.2 % (0-4); Hematocrit 41.7 % (42.0-52.0); Hemoglobin 14.3 g/dl (14.0-18.0); Imm Gran Abs Auto 0.03 X10*3/uL (0.00-0.03); Imm Gran Pct Auto 0.4 % (0.0-0.4); Lymphocytes Absolute Auto 3.7 X10*3/uL (1.2-4.9); Lymphocytes Percent Auto 44.6 % (20-40); Mean Corpuscular HGB Conc 34.3 g/dl (31.0-36.0); Mean Corpuscular Hemoglobin 31.9 pg (27.0-33.0); Mean Corpuscular Volume 93.1 fL (80.0-98.0); Mean Platelet Volume 9.9 fL (9.4-12.4); Monocytes Absolute Auto 0.7 X10*3/uL (0.1-1.2); Monocytes Percent Auto 8.1 % (2-11); Neutrophils Absolute Auto 3.7 x10*3/uL (2.0-8.3); Neutrophils Percent Auto 44.1 % (45-73); Platelet Count 244 X10*3/uL (160-400); Red Blood Count 4.48 X10*6/uL (4.60-5.80); Red Cell Distribution Width 13.2 % (11.0-16.0); White Blood Count 8.3 X10*3/uL (4.8-10.8)
[2023-11-19 17:31] LABS: Erythrocyte Sedimentation Rate 3 MM/HR (0-15)
[2023-11-19 17:58] LABS: Alanine Aminotransferase 26 U/L (0-40); Albumin Level 4.7 g/dL (3.5-5.0); Alkaline Phosphatase 73 U/L (39-117); Anion Gap 11 (12-20); Aspartate Amino Transferase 21 U/L (5-37); Bilirubin Total 0.6 mg/dL (0.0-1.0); Blood Urea Nitrogen 11 mg/dL (9-16); C Reactive Protein 0.11 mg/dL (< or = 0.50); Carbon Dioxide 26 mmol/L (22-29); Chloride 109 mmol/L (96-108); Estimated Glomerular Filt Rate > 60; Glucose Random 83 mg/dL (60-115); Potassium 3.8 mmol/L (3.3-5.1); Sodium 142 mmol/L (135-145); Total Protein 7.4 g/dL (6.5-8.0)
== END 2023-11-19 15:42 | disposition home or self-care (01) ==
LOC: HO.LAB 15:41
PROVIDERS: Visit Provider Student in an Organized Health Care Education/Training Program
DX: M13.80 Other specified arthritis, unspecified site (principal); Z79.899 Other long term (current) drug therapy
CPT/HCPCS: 36415; 80053; 85025; 85652; 86140

== ENCOUNTER 2023-11-23 13:46 | Outpatient (AMB) | payer OTHER, SELFPAY ==
--- NOTE | 2023-11-23 13:47 | A.OFFVIS_ITS ---
Intake Vital Signs 11/23/23 13:53 Height 6 ft Weight 206 lb 9.17 oz BMI 28.0 BP 90/62 Blood Pressure Location Rt brachial Position Sitting Pulse 63 Pulse Source Pulse Oximeter Temp 97 F Temp Source Skin Pulse Oximetry (%) 98 Oxygen Delivery Method Room Air Intake Visit Reasons: PsA Intake Note: Patient last seen 06/17/23, presents today for follow up and test results. MTX 3 tabs a week. Assistant Shift Supervisor Required: No Accompanied by: Self / Same As Patient Allergies No Known Allergies Allergy (Verified 11/23/23 13:47) Medication List - Last Reconciled 11/23/23 by Shirin Koroma MD acetaminophen (Tylenol Extra Strength) 1,000 mg PO Q6H PRN adalimumab (Humira(CF) Pen) 40 mg (0.4 mL) subcut Q2W esomeprazole magnesium (Nexium) 20 mg PO DAILY fluconazole 200 mg PO DAILY folic acid 1 mg PO DAILY methotrexate sodium 7.5 mg PO QWEEK metronidazole 500 mg PO TID 14 days sucralfate 10 mL PO BID sumatriptan succinate 50 mg PO Q2-4H PRN HPI HPI Comments History of Present Illness Details This is a 38-year-old male with a seronegative arthritis (seronegative RA/PsA) who presents for follow-up. He is currently on 7.5 mg of methotrexate once weekly and Humira every other week. Lowering methotrexate from 15 mg weekly to 7.5 mg weekly did not make a difference. Doing fairly well overall. Gets intermittent pain on the outside of his elbows associated with some stiffness. Usually when leaning on his elbows. Denies any psoriasis skin rashes however occasionally gets eczema like skin rashes on the dorsal aspect of his fingers rapidly improved with a steroid cream. [facility] Medical History (Updated 11/23/23 @ 14:20 by Shirin Koroma MD) Thyroid nodule Seronegative arthritis Family History Father HTN (hypertension) Psoriasis Mother No known health problems Maternal Aunt Rheumatoid arthritis Social History Alcohol intake: never Patient Tobacco Use Status: Never used Tobacco Tobacco use type: Cigarette Cigarettes Per Day: 1 Review of Systems Musc Reports arthralgias Physical Exam Vital Signs: Last Vital Signs Temp 97 F 11/23/23 13:53 Pulse 63 11/23/23 13:53 BP 90/62 11/23/23 13:53 Pulse Ox 98 11/23/23 13:53 Oxygen Delivery Method Room Air 11/23/23 13:53 BMI result Body Mass Index 28.0 Const General: cooperative, healthy appearing and comfortable Nutritional Appearance: overweight Orientation/consciousness: patient oriented x3 Limitations: no limitations HEENT Head: Yes normocephalic and Yes atraumatic Mouth: moist mucous membranes Resp Effort & Inspection: normal respiratory effort and able to speak in complete sentences Skin General skin exam: no rashes or lesions noted Neuro General: patient oriented x3 Extrem Other: No active synovitis. Marly test 10-15 cm Negative Jennie's test bilaterally No nail pitting Results Reviewed Results Reviewed: US hands: no synovitis MRI right hand with enhancement around MCP joints and tenosynovitis. MRI pelvis: no sacroilitis Xray of L spine and C spine: unremarkable Assessment & Plan Assessment & Plan (1) Seronegative arthritis: Comment: Plaquenil: 02/2020 Sulfasalazine: 02/2020 Methotrexate: 03/2020-present Humira: September 2021- present Code(s): M13.80 - Other specified arthritis, unspecified site Plan: This is a 38-year-old male with seronegative arthritis (seronegative RA versus PsA) has a history of psoriasis in his family who presents for follow-up. Doing well overall on methotrexate 7.5 mg once weekly and Humira every other week. Continue methotrexate 7.5 mg once weekly and Humira every other week. Labs in 3 and in 6 months Follow-up in 6 months (2) senior care methotrexate user: Code(s): Z79.899 - Other usp (current) drug therapy Plan: monitor safety labs (3) Immunization counseling: Code(s): Z71.85 - Encounter for immunization safety counseling Plan: Patient received flu vaccine for this season. Advised patient to get the new COVID booster and hold methotrexate 2 weeks after vaccination Plan I spent 27 minutes reviewing patient's chart, evaluating patient, ordering diagnostic workup, counseling patient and documenting in the chart Orders: Orders Complete Blood Count Auto Diff 6 Months Z79.899 - Other usp (current) drug therapy Erythrocyte Sedimentation Rate 6 Months Z79.899 - Other usp (current) drug therapy Comprehensive Met. Panel 3 Months Z79.899 - Other terminal make up operator (current) drug therapy Erythrocyte Sedimentation Rate 3 Months Z79.899 - Other terminal make up operator (current) drug therapy C Reactive Protein 11/19/23 M13.80 - Other specified arthritis, unspecified site, Z79.899 - Other terminal make up operator (current) drug therapy Complete Blood Count Auto Diff 11/19/23 M13.80 - Other specified arthritis, unspecified site, Z79.899 - Other terminal make up operator (current) drug therapy Erythrocyte Sedimentation Rate 11/19/23 M13.80 - Other specified arthritis, unspecified site, Z79.899 - Other usp (current) drug therapy Comprehensive Met. Panel 11/19/23 M13.80 - Other specified arthritis, unspecified site, Z79.899 - Other terminal make up operator (current) drug therapy Comprehensive Met. Panel 6 Months Z79.899 - Other terminal make up operator (current) drug therapy C Reactive Protein 6 Months Z79.899 - Other terminal make up operator (current) drug therapy Complete Blood Count Auto Diff 3 Months Z79.899 - Other terminal make up operator (current) drug therapy C Reactive Protein 3 Months Z79.899 - Other terminal make up operator (current) drug therapy Medications: New methotrexate sodium 7.5 mg (3 x 2.5 mg) PO QWEEK 12 tabs 1RF Refilled adalimumab (Humira(CF) Pen) 40 mg (0.4 mL) subcut Q2W 4 ea 3RF M13.80 - Other specified arthritis, unspecified site folic acid 1 mg PO DAILY 90 tabs 1RF Coding Level of Care Code Est Pt Level 4 (71401) Diagnoses Seronegative arthritis M13.80 terminal make up operator methotrexate user Z79. Immunization counseling Z71.85
[2023-11-23 13:53] VITALS: BP 90/62; PULSE 63; TEMP 36.1; O2SAT 98; BMI 28.0
== END 2023-11-23 14:16 | disposition home or self-care (01) ==
PROVIDERS: Visit Provider Student in an Organized Health Care Education/Training Program
DX: M13.80 Other specified arthritis, unspecified site (principal); Z79.899 Other long term (current) drug therapy; Z71.85 Encounter for immunization safety counseling
CPT/HCPCS: 99214

== ENCOUNTER → 2023-11-23 13:46 | Outpatient (BNVA) | payer OTHER, SELFPAY | PROVIDERS: PCP Student in an Organized Health Care Education/Training Program; Visit Provider Student in an Organized Health Care Education/Training Program | DX: M13.80 Other specified arthritis, unspecified site (principal); Z79.899 Other long term (current) drug therapy ==

== ENCOUNTER 2024-04-07 16:05 | Outpatient (REF) | payer OTHER, SELFPAY ==
[2024-04-07 16:15] LABS: MANUAL DIFF FLAG NO
[2024-04-07 17:11] LABS: Basophils Absolute Auto 0.1 X10*3/uL (0.0-0.2); Basophils Percent Auto 0.6 % (0-2); Eosinophils Absolute Auto 0.2 X10*3/uL (0.0-0.4); Hematocrit 40.4 % (42.0-52.0); Hemoglobin 13.9 g/dl (14.0-18.0); Imm Gran Abs Auto 0.03 X10*3/uL (0.00-0.03); Imm Gran Pct Auto 0.4 % (0.0-0.4); Lymphocytes Absolute Auto 3.7 X10*3/uL (1.2-4.9); Lymphocytes Percent Auto 47.3 % (20-40); Mean Corpuscular HGB Conc 34.4 g/dl (31.0-36.0); Mean Corpuscular Hemoglobin 31.2 pg (27.0-33.0); Mean Corpuscular Volume 90.8 fL (80.0-98.0); Mean Platelet Volume 9.8 fL (9.4-12.4); Monocytes Absolute Auto 0.6 X10*3/uL (0.1-1.2); Monocytes Percent Auto 8.1 % (2-11); Neutrophils Absolute Auto 3.2 x10*3/uL (2.0-8.3); Neutrophils Percent Auto 40.6 % (45-73); Platelet Count 230 X10*3/uL (160-400); Red Blood Count 4.45 X10*6/uL (4.60-5.80); Red Cell Distribution Width 12.3 % (11.0-16.0); White Blood Count 7.8 X10*3/uL (4.8-10.8)
[2024-04-07 17:30] LABS: Alanine Aminotransferase 18 U/L (0-40); Albumin Level 4.5 g/dL (3.5-5.0); Alkaline Phosphatase 73 U/L (39-117); Anion Gap 15 (12-20); Aspartate Amino Transferase 17 U/L (5-37); Bilirubin Total 0.5 mg/dL (0.0-1.0); Blood Urea Nitrogen 14 mg/dL (9-16); C Reactive Protein < 0.10 mg/dL (< or = 0.50); Calcium 9.1 mg/dL (8.4-10.2); Carbon Dioxide 27 mmol/L (22-29); Chloride 106 mmol/L (96-108); Estimated Glomerular Filt Rate > 60; Glucose Random 89 mg/dL (60-115); Potassium 3.7 mmol/L (3.3-5.1); Sodium 144 mmol/L (135-145); Total Protein 7.2 g/dL (6.5-8.0)
[2024-04-07 17:53] LABS: Erythrocyte Sedimentation Rate 5 MM/HR (0-15)
== END 2024-04-07 16:06 | disposition home or self-care (01) ==
LOC: HO.LAB 16:05
PROVIDERS: Visit Provider Student in an Organized Health Care Education/Training Program
DX: Z79.899 Other long term (current) drug therapy (principal)
CPT/HCPCS: 36415; 80053; 85025; 85652; 86140

== ENCOUNTER 2024-06-21 13:41 | Outpatient (REF) | payer OTHER, SELFPAY ==
[2024-06-21 13:48] LABS: MANUAL DIFF FLAG NO
[2024-06-21 14:51] LABS: Basophils Absolute Auto 0.1 X10*3/uL (0.0-0.2); Basophils Percent Auto 0.6 % (0-2); Eosinophils Absolute Auto 0.3 X10*3/uL (0.0-0.4); Eosinophils Percent Auto 2.9 % (0-4); Hematocrit 42.3 % (42.0-52.0); Hemoglobin 14.3 g/dl (14.0-18.0); Imm Gran Abs Auto 0.04 X10*3/uL (0.00-0.03); Imm Gran Pct Auto 0.5 % (0.0-0.4); Lymphocytes Percent Auto 46.2 % (20-40); Mean Corpuscular HGB Conc 33.8 g/dl (31.0-36.0); Mean Corpuscular Volume 91.8 fL (80.0-98.0); Mean Platelet Volume 10.1 fL (9.4-12.4); Monocytes Absolute Auto 0.7 X10*3/uL (0.1-1.2); Monocytes Percent Auto 8.4 % (2-11); Neutrophils Absolute Auto 3.6 x10*3/uL (2.0-8.3); Neutrophils Percent Auto 41.4 % (45-73); Platelet Count 212 X10*3/uL (160-400); Red Blood Count 4.61 X10*6/uL (4.60-5.80); Red Cell Distribution Width 12.8 % (11.0-16.0); White Blood Count 8.6 X10*3/uL (4.8-10.8)
[2024-06-21 15:30] LABS: Erythrocyte Sedimentation Rate 4 MM/HR (0-15)
[2024-06-21 15:34] LABS: Alanine Aminotransferase 15 U/L (0-40); Albumin Level 4.7 g/dL (3.5-5.0); Alkaline Phosphatase 68 U/L (39-117); Anion Gap 10 (12-20); Aspartate Amino Transferase 17 U/L (5-37); Bilirubin Total 0.4 mg/dL (0.0-1.0); Blood Urea Nitrogen 13 mg/dL (9-16); C Reactive Protein < 0.10 mg/dL (< or = 0.50); Calcium 10.2 mg/dL (8.4-10.2); Carbon Dioxide 29 mmol/L (22-29); Chloride 107 mmol/L (96-108); Estimated Glomerular Filt Rate > 60; Glucose Random 90 mg/dL (60-115); Potassium 3.8 mmol/L (3.3-5.1); Sodium 142 mmol/L (135-145); Total Protein 7.5 g/dL (6.5-8.0)
== END 2024-06-21 13:42 | disposition home or self-care (01) ==
LOC: HO.LAB 13:41
PROVIDERS: Visit Provider Student in an Organized Health Care Education/Training Program
DX: Z79.899 Other long term (current) drug therapy (principal)
CPT/HCPCS: 36415; 80053; 85025; 85652; 86140

== ENCOUNTER 2024-06-28 12:59 | Outpatient (AMB) | payer OTHER, SELFPAY ==
[2024-06-28 13:07] VITALS: BP 100/62; PULSE 62; O2SAT 100; BMI 27.0
--- NOTE | 2024-06-28 13:07 | MHC.OFFVIS ---
Vital Signs 06/28/24 13:07 Height 6 ft Weight 199 lb 4.766 oz BMI 27.0 BP 100/62 Blood Pressure Location Lt brachial Position Sitting Pulse 62 Pulse Source Pulse Oximeter Pulse Oximetry (%) 100 Oxygen Delivery Method Room Air Intake Visit Reasons: PSA Intake Note: Patient last seen by Doctor Shirin Koroma on 11/23/23. Presents today for PsA follow up and test results. Allergies No Known Allergies Allergy (Verified 06/28/24 13:11) Medication List - Last Reconciled 06/28/24 by Shirin Koroma MD acetaminophen (Tylenol Extra Strength) 1,000 mg PO Q6H PRN esomeprazole magnesium (Nexium) 20 mg PO DAILY fluconazole 200 mg PO DAILY folic acid 1 mg PO DAILY Humira(CF) Pen (adalimumab) 40 mg (0.4 mL) subcut Q2W NS methotrexate sodium 7.5 mg (3 x 2.5 mg) PO QWEEK metronidazole 500 mg PO TID 14 days sucralfate 10 mL PO BID sumatriptan succinate 50 mg PO Q2-4H PRN HPI Comments Details: This is a 39-year-old male with a seronegative arthritis (seronegative RA/PsA) who presents for follow-up. Patient was on methotrexate 7.5 mg weekly and Humira 40 mg every other week. Towards the end of April of 2024 he started having GI upset. He also had thrush in his throat. He was evaluated by his personnel security assistant and prescribed a course of fluconazole with significant improvement, he also held the methotrexate and Humira at that time. He has been off all DMARDs for about 6 weeks now. He states that he has been having some intermittent right neck pain as well as right upper back pain, he also has been having some mild pain on the inner aspect of the left foot. Doing well otherwise with no swollen or painful joints. He took prednisone 15 mg x2 days with resolution of his pain. Overall doing well. [facility] Medical History Thyroid nodule Seronegative arthritis Family History Father HTN (hypertension) Psoriasis Mother No known health problems Maternal Aunt Rheumatoid arthritis Social History Alcohol intake: never Patient Tobacco Use Status: Never used Tobacco Tobacco use type: Cigarette Cigarettes Per Day: 1 Review of Systems ENT Reports neck pain Musc Reports back pain, Reports arthralgias and Reports neck pain Physical Exam Vital Signs: Last Vital Signs Pulse 62 06/28/24 13:07 BP 100/62 06/28/24 13:07 Pulse Ox 100 06/28/24 13:07 Oxygen Delivery Method Room Air 06/28/24 13:07 BMI result Body Mass Index 27.0 Const General: cooperative, healthy appearing and comfortable Nutritional Appearance: overweight Orientation/consciousness: patient oriented x3 Limitations: no limitations HEENT Head: Yes normocephalic and Yes atraumatic Mouth: moist mucous membranes Resp Effort & Inspection: normal respiratory effort and able to speak in complete sentences Skin General skin exam: no rashes or lesions noted Neuro General: patient oriented x3 Extrem Other: Could not elicit any swollen or tender joints today Minimal right cervical paraspinal muscle pain with neck rotation towards the left Negative straight leg raise test bilaterally Marly test 10-15 cm Negative Jennie's test bilaterally No nail pitting Results Reviewed Results Reviewed: US hands: no synovitis MRI right hand with enhancement around MCP joints and tenosynovitis. MRI pelvis: no sacroilitis Xray of L spine and C spine: unremarkable Assessment & Plan Assessment & Plan (1) Seronegative arthritis: Comment: Plaquenil: 02/2020 Sulfasalazine: 02/2020 Methotrexate: 03/2020-present lowered to 7.5 mg weeklt due to transaminitis Humira: September 2021- present DC 04/2024 due to esophageal candidiasis. Code(s): M13.80 - Other specified arthritis, unspecified site Category: Medical Plan: This is a 39-year-old male with seronegative arthritis (seronegative RA versus PsA) who presents for follow-up. 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 Over the last 6 weeks he has been off all DMARDs. He continues to have minimal mild flare-ups affecting the friend joints including his neck, ankles, feet, there is no swollen joints on exam and inflammatory markers are normal. I think we can not restart TNF inhibitors given 2 episodes of esophageal candidiasis. Methotrexate can not be used as monotherapy as patient was having transaminitis with her doses. At this time we will monitor patient off DMARDs, patient will take NSAIDs as needed. I also provided patient with an Otezla starter kit sample. To take if intermittent NSAID use is not effective. Discussed potential side effects of Otezla Follow-up in 6 months Plan I spent 27 minutes reviewing patient's chart, evaluating patient, ordering diagnostic workup, counseling patient and documenting in the chart Orders: Orders Comprehensive Met. Panel 6 Months M13.80 - Other specified arthritis, unspecified site C Reactive Protein 6 Months M13.80 - Other specified arthritis, unspecified site Complete Blood Count Auto Diff 6 Months M13.80 - Other specified arthritis, unspecified site Erythrocyte Sedimentation Rate 6 Months M13.80 - Other specified arthritis, unspecified site Medications: New Otezla Starter (apremilast) Provided 1 box as a sample Lot number: [id number] date 02/19/2026 27 ea 0RF NS Discontinued metronidazole Discontinued Reason: Doctor's Order 500 mg PO TID 14 days 42 tabs 0RF methotrexate sodium Discontinued Reason: Doctor's Order 7.5 mg (3 x 2.5 mg) PO QWEEK 36 tabs 1RF fluconazole 2 tab on day 1 then one tab daily Discontinued Reason: Doctor's Order 200 mg PO DAILY 22 tabs 0RF Humira(CF) Pen (adalimumab) Discontinued Reason: Doctor's Order 40 mg (0.4 mL) subcut Q2W 4 mL 5RF NS M13.80 - Other specified arthritis, unspecified site Coding Level of Care Code Est Pt Level 4 (91042) Diagnoses Seronegative arthritis M13.80
== END 2024-06-28 13:56 | disposition home or self-care (01) ==
PROVIDERS: Visit Provider Student in an Organized Health Care Education/Training Program
DX: M13.80 Other specified arthritis, unspecified site (principal)
CPT/HCPCS: 99214

== ENCOUNTER → 2024-06-28 12:59 | Outpatient (BNVA) | payer OTHER, SELFPAY | PROVIDERS: Visit Provider Student in an Organized Health Care Education/Training Program ==

== ENCOUNTER 2024-07-26 13:02 | Outpatient (REF) | payer OTHER, SELFPAY ==
--- NOTE | ~2024-07-26 | US_ITS ---
EXAMINATION: US THYROID CLINICAL INFORMATION: Nontoxic single thyroid nodule COMPARISON: Ultrasound thyroid 08/26/2022 TECHNIQUE: Linear transducer grayscale and color Doppler examination with attention to the region of the thyroid. FINDINGS: SIZE: Measurements of the thyroid lobes and nodules are given in sagittal, anteroposterior and transverse dimensions respectively. Right Thyroid Lobe: 5.9 x 2.1 x 2.5 cm, volume 16.2 mL, previously measuring 5.2 x 1.8 x 2 cm with a volume of 9.8 mL. Parenchyma: The gland echotexture is homogeneous. Thyroid vascularity is normal. Left Thyroid Lobe: 5.6 x 1.8 x 1.9 cm, volume 10 mL, previously measuring 5.2 x 1.8 x 2 cm with a volume of 9.6 mL. Parenchyma: The gland echotexture is homogeneous. Thyroid vascularity is normal. Isthmus: 0.3 cm in maximum AP dimension. Estimated total number of nodules greater than or equal to 1 cm: 1. Forging Dies Final Finisher nodules are described as follows: 1. Location: Left thyroid midpole. Size: 1 x 0.8 x 1.1 cm, volume 0.5 mL, previously measuring 1.1 x 0.9 x 1 cm. Nodule characteristics: Composition: Solid (2). Echogenicity: Hyperechoic (1). Shape: Not taller than wide Margins: Smooth Echogenic Foci: None (0). ACR TI-RADS total points: 3, previously 3 ACR TI-RADS category: 3, previously 3 NODES: No lymphadenopathy is seen in the tissue surrounding the thyroid gland. US/US thyroid IMPRESSION: Stable 1.1 cm TR 3 nodule in the left thyroid midpole. ACR TI-RADS RECOMMENDATION REFERENCE: Ultrasound-guided fine-needle aspiration, followup ultrasound, no further follow up. * TR1 (0 point) and TR2 (2 points): No FNA or follow up. * TR3 (3 points): FNA if more than or equal to 2.5 cm in maximum dimension, followup ultrasound in 1, 3 and 5 years if 1.5 to 2.4 cm in maximum dimension. * TR4 (4-6 points): FNA if more than or equal to 1.5 cm in maximum dimension, followup ultrasound in 1, 2, 3 and 5 years if 1 to 1.4 cm in maximum dimension. * TR5 (more than or equal to 7 points): FNA if more than or equal to 1 cm in maximum dimension, followup ultrasound every year for 5 years if 0.5 to 0.9 cm in maximum dimension. * TR3, TR4 or TR5 nodules that are below the size threshold for followup receive no follow up. Electronically signed by: Payam Carney MD 07/26/2024 05:14 PM EDT
== END 2024-07-26 13:03 | disposition home or self-care (01) ==
LOC: HO.US 13:02
PROVIDERS: Visit Provider Student in an Organized Health Care Education/Training Program
DX: E04.1 Nontoxic single thyroid nodule (principal)
CPT/HCPCS: 76536

== ENCOUNTER 2025-01-30 13:49 | Outpatient (REF) | payer OTHER, SELFPAY ==
[2025-01-30 15:16] LABS: Erythrocyte Sedimentation Rate 6 MM/HR (0-15)
[2025-01-30 15:53] LABS: Alanine Aminotransferase 25 U/L (0-40); Albumin Level 4.4 g/dL (3.5-5.0); Anion Gap 11 (12-20); Aspartate Amino Transferase 27 U/L (5-37); Bilirubin Direct 0.2 mg/dL (0.0-0.5); Bilirubin Total 0.5 mg/dL (0.0-1.0); Blood Urea Nitrogen 10 mg/dL (9-16); C Reactive Protein 0.17 mg/dL (< or = 0.50); Calcium 9.7 mg/dL (8.4-10.2); Carbon Dioxide 27 mmol/L (22-29); Chloride 109 mmol/L (96-108); Cholesterol 145 mg/dL (<200); Estimated Glomerular Filt Rate > 60; Glucose Random 91 mg/dL (60-115); HDL Cholesterol 40 mg/dL (>40); LDL Cholesterol Calculated 85 mg/dL (<100); Sodium 143 mmol/L (135-145); Total Protein 7.7 g/dL (6.5-8.0); Triglycerides 101 mg/dL (<150)
[2025-01-30 16:09] LABS: Prostate Specific Antigen 0.65 ng/mL (<0.05-4.0); Vitamin B12 439 pg/mL (200-900)
--- OUTSIDE RECORDS SUMMARY | 2025-01-30 16:48 | XMS_ITS ---
Author Name [facility] Organization Unknown Problems Problem Status Onset Date Problem Type Date of Resolution Source Psoriatic arthritis active 2023-08-03 ProblemAct E[facility] Gastroesophageal reflux disease without esophagitis active 2023-08-03 ProblemAct [facility] Encounters Encounter Type Encounter Reason Primary Diagnosis Location Date Ambulatory [facility] [address] [facility] [address] [facility] [address] [facility] [address] [facility] [address] [facility] 023 Care Team Organization Name Specialty Phone Email Start Date End Da te [facility] 07/08/[address] [facility]/2024
--- OUTSIDE RECORDS SUMMARY | 2025-01-30 16:48 | XMS_ITS | Clinical Summary ---
Author Organization [address] [place] [address] [place] [id number] Phone Care Team Providers Care Java Android Developer Name Role Phone Jhony Flory Light NP Primary Care Provider [phone] Allergies No known active allergies Immunizations Name Administration Dates Next Due Influenza Quadravalent, MDCK , 0.5ml, preservative free (Flucelvax) 6mo and older 09/10/2019 Medical History Medical History Date Comments Carpal tunnel syndrome DX:Carpal tunnel syndrome Family History Medical History Relation Name Comments Brain cancer Brother Hypertension Father Psoriasis Father Diabetes Maternal Grandfather No Known Problems Mother Diabetes Paternal Grandfather Relation Name Status Comments Brother Alive Father Alive Maternal Grandfather Alive Mother Alive Paternal Grandfather Alive Social History Tobacco Use Types Packs/Day Years Used Date Smoking Tobacco: Light Smoker Smokeless Tobacco: Never Alcohol Use Standard Drinks/Week Comments Yes 0 (1 standard drink = 0.6 oz pur e alcohol) Sex and Gender Information Value Date Recorded Sex Assigned at Not on file Legal Sex Male 9:24 AM EST Gender Identity Not on file Sexual Orientation Not on file Obstetrics History Plan of Treatment Health Maintenance Due Date Last Done Comments DTaP,Tdap,and Td Vaccines (1 - Tdap) 2005 Hepatitis B Vaccines (1 of 3 - 19+ 3-dose series) 2005 Pneumococcal Vaccine: Pediatrics (0 to 5 Years) and At-Risk Patients (6 to 64 Years) (1 of 2 - PCV) 2005 COVID-19 Vaccine (2023-2 5 season) 2024 Influenza Vaccine (#1) 2024 09/10/2019 Depression Screening 09/07/2024 HIV Screening 09/07/2024 Hepatitis C Screening 09/07/2024 Social Influencers of Health Screening 09/07/2024 Cholesterol Screening (Lipid Panel) 11/23/2024 11/23/2019, 11/23/2019 HIB Vaccines Aged Out No longer eligi ble based on patient's age to complete this topic HPV Vaccines Aged Out No longer eligi ble based on patient's age to complete this topic Hepatitis A Vaccines Aged Out No long er eligible based on patient's age to complete this topic IPV Vaccines Aged Out No longer eligi ble based on patient's age to complete this topic MMR Vaccines Aged Out No longer eligi ble based on patient's age to complete this topic Meningococcal ACWY Vaccine Aged Out N o longer eligible based on patient's age to complete this topic Meningococcal B Vacine Aged Out No lo nger eligible based on patient's age to complete this topic RSV Immunization Patients Under 20 months Aged Out No longer eligible b ased on patient's age to complete this topic Varicella Vaccines Aged Out No longer eligible based on patient's age to complete this topic Procedures Procedure Name Priority Date/Time Associated Diagnosis Comments LIPID PANEL Routine 11/23/2019 from Last 3 Months or Most Recently Relevant to Health Maintenance Results * Lipid panel (11/23/2019) Triglycerides 121 <=150 mg/dL Cholesterol 130 0 - 200 mg/dL HDL 40 32 - 70 mg/dL LDL Cholesterol 66 50 - 130 mg/dL Blood Venous blood specimen / Unknown us Historical Provider LAB BLOOD ORDERABLES Lana l Result from Last 3 Months or Most Recently Relevant to Health Maintenance Care Teams Java Android Developer Relationship Specialty Start Date End Date Flory Booker, LEGAL SECRETARY RECEPTIONIST PCP - General Family Medicine 10/03/19
--- OUTSIDE RECORDS SUMMARY | 2025-01-30 16:48 | XMS_ITS | Clinical Summary ---
Author Organization [facility] Address [address] [place] [address] Care Team Providers Care Mica Builder Name Role Phone Pcp, No Primary Care Provider Unavailabl e Allergies No known active allergies Medications Medication Sig Dispensed Refills Start Date End Date Status ibuprofen (MOTRIN) 400 MG tablet Take 400 mg by mouth 2 (two) times a day as needed for mild pain. 12/18/2019 Discontinued( Patient Discharge) Active Problems No known active problems Family History Medical History Relation Name Comments Hypertension Father Breast cancer Maternal Grandfather Diabetes Maternal Grandfather Diabetes Paternal Grandfather Relation Name Status Comments Father Maternal Grandfather Paternal Grandfather Social History Tobacco Use Types Packs/Day Years Used Date Smoking Tobacco: Former Cigarettes 0.5 6 2 010 - 2015 Smokeless Tobacco: Never Alcohol Use Standard Drinks/Week Comments Never 0 (1 standard drink = 0.6 oz pur e alcohol) AUDIT-C Answer Date Recorded Frequency of Alcohol Consumption Never 09/29/2019 Average Number of Drinks Not on file 019 Frequency of Binge Drinking Not on file 06/2019 Sex and Gender Information Value Date Recorded Sex Assigned at Not on file Gender Identity Not on file Sexual Orientation Not on file Last Filed Vital Signs Vital Sign Reading Time Taken Comments Blood Pressure - - Pulse - - Temperature - - Respiratory Rate - - Oxygen Saturation - - Inhaled Oxygen Concentration - - Weight 93 kg (205 lb) 09/29/2019 9:14 AM EST Height 188 cm (6' 2 ) 09/29/2019 9:14 AM EST Body Mass Index 26.32 09/29/2019 9:14 AM EST Plan of Treatment Health Maintenance Due Date Last Done Comments Hepatitis C Virus Screening 1986 HIV Screening 1999 DTaP/Tdap/Td Vaccines (1 - Tdap) 2005 Hepatitis B Vaccines (1 of 3 - 19+ 3-dose series) 2005 Influenza Vaccine 06/22/2024 COVID-19 Vaccine (2023-2 5 season) 2024 HPV Vaccines Aged Out No longer eligi ble based on patient's age to complete this topic Pneumococcal Vaccine: Pediat mari (0-5 Years) and At-Risk Patients (6 to 49 Years) Aged Out No longer eligible b ased on patient's age to complete this topic Care Teams Mica Builder Relationship Specialty Start Date End Date Pcp, No PCP - General General Medicine 09/19/19
--- OUTSIDE RECORDS SUMMARY | 2025-01-30 16:48 | XMS_ITS | Clinical Summary ---
Author Organization [facility] Address [address] [place] [address] Care Team Providers Care Labor Arbitrator Hearing Office Name Role Phone Flory Booker APRN Primary Care Provider U navailable Allergies No known active allergies Medications No known medications Immunizations Name Administration Dates Next Due Influenza Quad (Flucelvax) 0.5mL >6mon (ccIIV4) 09/10/2019 Family History Medical History Relation Name Comments Brain cancer Brother Hypertension Father Psoriasis Father Diabetes Maternal Grandfather No Sig Med Hx Mother Diabetes Paternal Grandfather Relation Name Status Comments Brother Alive Father Alive Maternal Grandfather Alive Mother Alive Paternal Grandfather Alive Social History Tobacco Use Types Packs/Day Years Used Date Smoking Tobacco: Light Smoker Cigarettes Smokeless Tobacco: Never Comments:1 cigarette every s o often Alcohol Use Standard Drinks/Week Comments Yes 0 (1 standard drink = 0.6 oz pur e alcohol) rarely Sex and Gender Information Value Date Recorded Sex Assigned at Male 09/13/2019 11:07 AM EDT Gender Identity Male 10/18/2019 2:30 PM EST Sexual Orientation Straight 10/18/2019 2: 30 PM EST Job Start Date Occupation Industry Not on file Not on file Not on file Last Filed Vital Signs Vital Sign Reading Time Taken Comments Blood Pressure 102/66 12/07/2019 9:55 AM EST Pulse 76 12/07/2019 9:55 AM EST Temperature 37 ??C (98.6 ??F) 12/07/2019 9:55 AM EST Respiratory Rate 16 12/07/2019 9:55 AM EST Oxygen Saturation 98% 12/07/2019 9:55 AM EST Inhaled Oxygen Concentration - - Weight 96.3 kg (212 lb 6.4 oz) 12/07/2019 9:55 A M EST Height 190 cm (6' 2.8 ) 12/07/2019 9:55 AM EST Body Mass Index 26.69 12/07/2019 9:55 AM EST Plan of Treatment Health Maintenance Due Date Last Done Comments Hepatitis B Vaccines (1 of 3 - 3-dose series) 1986 Hepatitis C Screening 1986 COVID-19 Vaccine (#1) 1986 Pneumococcal Vaccine (1 of 2 - PCV) 02/22/1992 Depression Screening 1998 BMI Counseling 02/22/2004 Preventative Health Evaluation 02/22/2004 Tobacco Cessation Counseling 02/22/2004 DTap / Tdap / Td (1 - Tdap) 2005 Influenza Vaccine (#1) 2024 09/10/2019 RSV Ped < 20 months Aged Out No longe r eligible based on patient's age to complete this topic Care Teams Labor Arbitrator Hearing Office Relationship Specialty Start Date End Date Flory Booker APRN PCP - General Family Medicine 10/03/19
[2025-01-30 18:22] LABS: Alkaline Phosphatase 77 U/L (39-117)
[2025-02-04 16:43] LABS: Vitamin D 25-OH, D2 <4 ng/mL; Vitamin D 25-OH, D3 19 ng/mL; Vitamin D 25-OH, Total 19 ng/mL (30-100)
== END 2025-01-30 13:50 | disposition home or self-care (01) ==
LOC: HO.LAB 13:49
PROVIDERS: Visit Provider Hospitalist
DX: Z13.828 Encounter for screening for other musculoskeletal disorder (principal); Z12.5 Encounter for screening for malignant neoplasm of prostate; Z13.6 Encounter for screening for cardiovascular disorders
CPT/HCPCS: 36415; 80048; 80061; 80076; 82306; 82607; 84153; 85652; 86140

== ENCOUNTER 2025-04-19 15:30 | Outpatient (REF) | payer OTHER, SELFPAY ==
--- OUTSIDE RECORDS SUMMARY | 2025-04-19 15:34 | XMS_ITS | Clinical Summary ---
Author Organization [facility] Address [address] [place] [address] Care Team Providers Care Production Lapping Machine Operator Name Role Phone Pcp, No Primary Care Provider Unavailabl e Allergies No known active allergies Medications ibuprofen (MOTRIN) 400 MG tablet Take 400 mg by mouth 2 (two) times a day as needed for mild pain. 12/18/19 20 Discontinu ed(Patient Discharge) Active Problems No known active problems [...] at Not on file Legal Sex Male 1:36 PM EST Gender Identity Not on file Sexual [...] of 3 - 19+ 3-dose series) 2005 COVID-19 Vaccine (1 - 2023-2 5 season) 2024 Influenza Vaccine 06/22/2025 HPV Vaccines Aged Out No longer eligi ble based on patient's age to complete this topic Pneumococcal Vaccine: Pediat mari (0-5 Years) and At-Risk Patients (6 to 49 Years) Aged Out No longer eligible b ased on patient's age to complete this topic Insurance Care Teams Production Lapping Machine Operator Relationship Specialty Start Date End Date Pcp, No PCP - General General Medicine 09/19/19
[2025-04-19 16:04] LABS: MANUAL DIFF FLAG NO
[2025-04-19 17:07] LABS: Basophils Absolute Auto 0.1 X10*3/uL (0.0-0.2); Basophils Percent Auto 0.6 % (0-2); Eosinophils Absolute Auto 0.3 X10*3/uL (0.0-0.4); Eosinophils Percent Auto 3.4 % (0-4); Hematocrit 39.8 % (42.0-52.0); Hemoglobin 13.5 g/dl (14.0-18.0); Imm Gran Abs Auto 0.07 X10*3/uL (0.00-0.03); Imm Gran Pct Auto 0.7 % (0.0-0.4); Lymphocytes Percent Auto 19.6 % (20-40); Mean Corpuscular HGB Conc 33.9 g/dl (31.0-36.0); Mean Corpuscular Hemoglobin 29.6 pg (27.0-33.0); Mean Corpuscular Volume 87.3 fL (80.0-98.0); Mean Platelet Volume 9.9 fL (9.4-12.4); Monocytes Percent Auto 9.4 % (2-11); Neutrophils Absolute Auto 6.7 x10*3/uL (2.0-8.3); Neutrophils Percent Auto 66.3 % (45-73); Platelet Count 271 X10*3/uL (160-400); Red Blood Count 4.56 X10*6/uL (4.60-5.80); Red Cell Distribution Width 12.6 % (11.0-16.0); White Blood Count 10.1 X10*3/uL (4.8-10.8)
[2025-04-19 17:25] LABS: Immature Retic Fraction 10.3 % (2.3-13.4); Retic HGB Equivalent 30.9 pg (30.0-35.0); Reticulocytes Absolute 0.046 X10*6/uL (0.026-0.095)
[2025-04-19 17:30] LABS: Alanine Aminotransferase 21 U/L (0-40); Albumin Level 4.6 g/dL (3.5-5.0); Alkaline Phosphatase 85 U/L (39-117); Anion Gap 12 (12-20); Aspartate Amino Transferase 26 U/L (5-37); Bilirubin Total 0.4 mg/dL (0.0-1.0); Blood Urea Nitrogen 10 mg/dL (9-16); C Reactive Protein 7.49 mg/dL (< or = 0.50); Calcium 9.3 mg/dL (8.4-10.2); Carbon Dioxide 28 mmol/L (22-29); Chloride 107 mmol/L (96-108); Estimated Glomerular Filt Rate > 60; Glucose Random 92 mg/dL (60-115); Potassium 3.9 mmol/L (3.3-5.1); Sodium 143 mmol/L (135-145); Total Protein 7.6 g/dL (6.5-8.0)
[2025-04-19 17:47] LABS: Erythrocyte Sedimentation Rate 30 MM/HR (0-15)
[2025-04-19 19:23] LABS: Lactate Dehydrogenase 215 U/L (118-273)
[2025-04-20 06:48] LABS: Lyme Abs Screen <0.90 index
[2025-04-20 08:24] LABS: HBS Num1 318.71 mIU/mL (0-7.99); HBc Num1 0.04 S/CO (0.00-0.79); HBsAGNum1 0.36 S/CO (0.00-0.99); Hepatitis A Antibody IgM 0.15 Index (0-0.79); Hepatitis B Core Antibody Nonreactive (Nonreactive); Hepatitis B Surface Antigen Negative (Negative); ~HepC Num1 0.14 S/CO (0.00-0.79); ~Hepatitis A Antibody IgM Nonreactive (Nonreactive); ~Hepatitis B Surface Antibody REACTIVE (Nonreactive); ~Hepatitis C Antibody Nonreactive (Nonreactive)
[2025-04-20 20:47] LABS: A. Phagocytphilium DNA,RT-PCR NOT DETECTED (NOT DETECTED); Babesia Microti DNA, RT-PCR NOT DETECTED (NOT DETECTED); Borrelia Miyamotoi,DNA RT-PCR NOT DETECTED (NOT DETECTED); E.Chaffeensis DNA RT-PCR NOT DETECTED (NOT DETECTED); Lyme(Borrelia ssp)DNA RT-PCR NOT DETECTED (NOT DETECTED)
[2025-04-22 19:09] LABS: TS Negative Control Passed; TS Panel A 0; TS Panel B 0; TS Positive Control Passed; TSpotTB Negative (Negative)
== END 2025-04-19 15:31 | disposition home or self-care (01) ==
LOC: HO.LAB 15:30
PROVIDERS: Absent Provider Student in an Organized Health Care Education/Training Program; Visit Provider Family Medicine
DX: M13.80 Other specified arthritis, unspecified site (principal); R53.83 Other fatigue
CPT/HCPCS: 36415; 80053; 83615; 85025; 85045; 85652; 86140; 86481; 86617; 86618; 86704; 86706; 86709; 86803; 87340; 87468; 87469; 87478; 87484; 87798

== ENCOUNTER 2025-04-25 14:59 | Outpatient (AMB) | payer OTHER, SELFPAY ==
[2025-04-25 15:04] VITALS: BP 118/70; PULSE 75; O2SAT 97; BMI 29.2
--- NOTE | 2025-04-25 15:04 | A.OFFVIS_ITS ---
Vital Signs 04/25/25 15:04 Height 6 ft Weight 215 lb 9.793 oz BMI 29.2 BP 118/70 Blood Pressure Location Lt brachial Position Sitting Pulse 75 Pulse Source Pulse Oximeter Pulse Oximetry (%) 97 Oxygen Delivery Method Room Air Intake Visit Reasons: PsA Intake Note: Patient presents for follow up on PSA today. Allergies No Known Allergies Allergy (Verified 04/25/25 15:08) Medication List - Last Reconciled 04/25/25 by Joanne Estrada MD acetaminophen (Tylenol Extra Strength) 1,000 mg PO Q6H PRN betamethasone dipropionate 0.05% 1 appl topical BID PRN esomeprazole magnesium (Nexium) 20 mg PO DAILY HPI Comments Details: Patient is a 40-year-old male with history of a thyroid nodule, GERD (hx of H pylori s/p treatment) and seronegative arthritis (seronegative RA/PSA) who is here today for follow up Interval History: Patient last seen 06/28/[address] Koroma. At that time he was following up for his seronegative arthritis on methotrexate 7.5 mg weekly and Humira 40 mg every other week. He was off his medication for a few weeks due to oral thrush and noted intermittent right neck pain and upper back pain. He received prednisone for few days which resolved his symptoms Because he had had recurrent esophageal candidiasis and could not go to higher levels of the methotrexate due to transaminitis the plan was to monitor him off DMARDs Since stopping the DMARDs has been doing overall well Has some AM stiffness but nothing prolonged Managing his pain well with Tylenol and NSAIDs Rheumatologic History: US hands: no synovitis MRI right hand with enhancement around MCP joints and tenosynovitis. Plaquenil: 02/2020 Sulfasalazine: 02/2020 Methotrexate: 03/2020-present lowered to 7.5 mg weeklt due to transaminitis Humira: September 2021- present DC 04/2024 due to esophageal candidiasis. Strong family history of autoimmune disease Father: PsO/PsA Grandfather: RA Current Rheumatology Medication(s): [facility] Medical History (Updated 06/28/24 @ 13:56 by Shirin Koroma MD) Thyroid nodule Seronegative arthritis Family History Father HTN (hypertension) Psoriasis Mother No known health problems Maternal Aunt Rheumatoid arthritis Social History Alcohol intake: never Patient Tobacco Use Status: Never used Tobacco Tobacco use type: Cigarette Cigarettes Per Day: 1 Review of Systems Const Details: Review of Systems Constitutional: Denies fever, chills, weight loss ENT: Denies vision changes, eye pain or eye redness, dental caries, dry mouth GI: Denies nausea, vomiting, diarrhea, abdominal pain, change in BM Pulm: Denies SOB, WALKER, hemoptysis, wheezing Cards: Denies chest pain, palpitations Skin: Denies Raynaud's, rash, nail changes, photosensitivity, 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 Well appearing and in no apparent painful distress HEENT Conjunctiva and sclera clear. ?Pupils equal round and reactive to light. ?No lymphadenopathy. ? CHEST/RESPIRATORY SYSTEM Normal respiratory effort and able to speak in complete sentences. ?Clear to auscultation bilaterally. ?No crackles, rales, rhonchi, wheezes heard. CARDIAC SYSTEM Regular rate and rhythm. ?S1 and S2 heard no murmurs. ?Radial pulses intact bilaterally MSK Hands: ?Able to make a fist. No synovitis noted to the MCPs, PIPs or DIPs. ?No tenderness to palpation of these joints. No deformities noted. ? Wrists: ?Full range of motion at the wrists without pain. ?No tenderness to palpation or synovitis noted to the wrists. Elbows: Full range of motion without pain. No tenderness, weakness, swelling, increased warmth or erythema. Shoulders: Full range of active range of motion without pain. No tenderness, weakness, swelling, increased warmth or erythema. Hips: Full range of motion without pain. Hip bursa: No tenderness to palpation Knees: ?Full range of motion. ?No tenderness, swelling, increased warmth or erythema.?No effusion or crepitations Ankles: Full range of motion. ?No tenderness, swelling, increased warmth or erythema.? Feet: ?Negative squeeze test. ?No tenderness to palpation or swelling of the MTPs. Tender points:?No tenderness to palpation of the bilateral trapezius, supraspinatus, greater trochanters, anterior costochondral junctions, bilateral gluteal areas, bilateral suboccipital muscle insertions SKIN Skin intact without rashes. Results Reviewed Results Reviewed: Laboratory Tests 01/30/25 04/19/25 14:00 16:02 WBC 10.1 RBC 4.56 L Hgb 13.5 L Hct 39.8 L Plt Count 271 D ESR 30 H Sodium 143 Potassium 3.9 Chloride 107 Carbon Dioxide 28 BUN 10 Creatinine 0.81 AST 26 ALT 21 Alkaline Phosphatase 85 C-Reactive Protein 0.17 7.49 H 25-OH Vitamin D Total 19 L Rheumatology labs 09/13/19 09/18/19 10/11/20 09:35 12:45 16:40 Rheumatoid Factor < 15.0 Cycl Citrul Peptide IgG <16 SS-A/Ro Antibody <1.0 SS-B/La Antibody <1.0 HLA-B27 Negative Assessment & Plan Assessment & Plan (1) Seronegative arthritis: Comment: Plaquenil: 02/2020 Sulfasalazine: 02/2020 Methotrexate: 03/2020-present lowered to 7.5 mg weeklt due to transaminitis Humira: September 2021- present DC 04/2024 due to esophageal candidiasis. Code(s): M13.80 - Other specified arthritis, unspecified site Category: Medical Plan: #Seronegative Arthritis Patient is a 40-year-old male with seronegative arthritis (RA versus PSA) here today for follow up. Currently patient does not have any evidence of synovitis on examination. Despite his significantly elevated CRP we will opt to monitor him off DMARDs. He does report that he did recently have a viral illness and so we will recheck his blood work in 4 weeks. 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 and we will follow up with us on if any of his symptoms worsen Plan - Continue to monitor off DMARDs - Recheck labs in 4 weeks - RTC 6 months Plan I spent 35 minutes reviewing the record and labs, taking a history, examining the patient, discussing the treatment plan, ordering diagnostic work up and documenting in the medical record Orders: Orders XR chest 2V Today R06.02 - Shortness of breath Complete Blood Count Auto Diff 4 Weeks M13.80 - Other specified arthritis, unspecified site C Reactive Protein 4 Weeks M13.80 - Other specified arthritis, unspecified site Erythrocyte Sedimentation Rate 4 Weeks M13.80 - Other specified arthritis, unspecified site Comprehensive Met. Panel 4 Weeks M13.80 - Other specified arthritis, unspecified site Medications: Refilled betamethasone dipropionate 0.05% 1 appl topical BID PRN 45 grams 2RF rash Discontinued Otezla Starter (apremilast) Discontinued Reason: Change Referral Type Provided 1 box as a sample Lot number: [id number] date 02/19/2026 27 ea 0RF NS folic acid Discontinued Reason: Doctor's Order 1 mg PO DAILY 90 tabs 1RF Coding Level of Care Code Est Pt Level 4 (44083) Complex EM visit Add On G2211 Diagnoses Seronegative arthritis M13.80
== END 2025-04-25 15:52 | disposition home or self-care (01) ==
LOC: HO.RHE 15:00
PROVIDERS: Visit Provider Student in an Organized Health Care Education/Training Program
DX: M13.80 Other specified arthritis, unspecified site (principal)
CPT/HCPCS: 99214

== ENCOUNTER 2025-05-04 | Outpatient (REF) | payer OTHER, SELFPAY ==
--- NOTE | ~2025-05-04 | XR_ITS ---
CLINICAL HISTORY: R06.02 - Shortness of breath 2 view chest x-ray Comparison: None Findings: The lungs are clear. Heart size is normal. No acute fracture. IMPRESSION: 1. No acute findings. This document has been electronically signed by: Tony Falcon MD on 05/06/2025 08:10:33
--- OUTSIDE RECORDS SUMMARY | 2025-05-22 09:20 | XMS_ITS | Clinical Summary ---
Author Organization [facility] Address [address] [place] [address] Care Team Providers Care Service Writer Name Role Phone Pcp, No Primary Care [...] to complete this topic Insurance Care Teams Service Writer Relationship Specialty Start Date End Date Pcp, No PCP - General General Medicine 09/19/19
--- OUTSIDE RECORDS SUMMARY | 2025-05-22 09:20 | XMS_ITS | Clinical Summary ---
Author Organization [facility] Address [address] [place] [address] Care Team Providers Care C Web Developer Name Role Phone Flory Booker APRN Primary [...] 77 12/07/2019 9:55 AM EST Temperature 37 C (98.6 F) 12/07/2019 9:55 AM EST Respiratory Rate 16 [...] Td (1 - Tdap) 2005 Influenza Vaccine (Season Ended) 2025 09/10/20 19 RSV Ped < 20 months Aged Out No longe r eligible based on patient's age to complete this topic Care Teams C Web Developer Relationship Specialty Start Date End Date Flory Booker APRN PCP - General Family Medicine 10/03/19
--- OUTSIDE RECORDS SUMMARY | 2025-05-22 09:20 | XMS_ITS | Clinical Summary ---
Author Organization [address] [place] [address] [place] [phone] Phone Care Team Providers Care Plastic Eye Technician Name Role Phone Flory Booker SENIOR UNIX ADMINISTRATOR Primary Care Provider [place] vailable Allergies No known active allergies Immunizations Name [...] 2005 COVID-19 Vaccine (2023-2 5 season) 2024 Depression Screening 09/07/2024 HIV Screening 09/07/2024 Hepatitis C Screening 09/07/2024 Social Influencers of Health Screening 09/07/2024 Cholesterol Screening (Lipid Panel) 11/23/2024 11/23/2019, 11/23/2019 Influenza Vaccine (Season Ended) 2025 09/10/2019 HIB Vaccines Aged Out No longer eligi [...] age to complete this topic Meningococcal B Vaccine Aged Out No l onger eligible based on patient's age to complete [...] Recently Relevant to Health Maintenance Care Teams Plastic Eye Technician Relationship Specialty Start Date End Date Flory Booker, SENIOR UNIX ADMINISTRATOR PCP - General Family Medicine 10/03/19
--- OUTSIDE RECORDS SUMMARY | 2025-05-22 09:21 | XMS_ITS ---
Author Name [facility] Organization Unknown Problems Problem Status Onset Date Problem Type Date of Resolution Source Psoriatic arthritis active 2023-08-03 ProblemAct ENS_AVNTCLIN Gastroesophageal reflux disease without esophagitis active 2023-08-03 ProblemAct ENS_AVNTCLIN Encounters Encounter Type Encounter Reason Primary Diagnosis Location Date Ambulatory [facility] 024 Ambulatory [facility] 023 Ambulatory [facility] 023 Ambulatory [facility] 023 Ambulatory [facility] 023 Ambulatory [facility] 023 Care Team Organization Name Specialty Phone Email Start Date End Da te [facility] JERO LEÓN Primary Care 07/08/2024 [facility] León Jero Primary Care 11/202212/26/2024
== END 2025-05-04 00:01 | disposition home or self-care (01) ==
LOC: HO.XRAY
PROVIDERS: Visit Provider Student in an Organized Health Care Education/Training Program
DX: R06.02 Shortness of breath (principal)
CPT/HCPCS: 71046

== ENCOUNTER → 2025-05-04 14:51 | Outpatient (BNV) | payer OTHER, SELFPAY | PROVIDERS: Visit Provider Specialist | DX: R06.02 Shortness of breath (principal) | CPT/HCPCS: 71046 ==

== ENCOUNTER 2025-05-16 16:32 | Outpatient (REF) | payer OTHER, SELFPAY ==
--- OUTSIDE RECORDS SUMMARY | 2025-05-16 18:49 | XMS_ITS | Clinical Summary ---
Author Organization [facility] Address [address] [place] [address] Care Team Providers Care Twist Tester Name Role Phone Pcp, No Primary Care [...] to complete this topic Insurance Care Teams Twist Tester Relationship Specialty Start Date End Date Pcp, No PCP - General General Medicine 09/19/19
== END 2025-05-16 16:33 | disposition home or self-care (01) ==
LOC: HO.LAB 16:32
PROVIDERS: Visit Provider Student in an Organized Health Care Education/Training Program
DX: Z13.89 Encounter for screening for other disorder (principal)

== ENCOUNTER 2025-05-22 13:34 | Outpatient (REF) | payer OTHER, SELFPAY ==
[2025-05-22 13:43] LABS: MANUAL DIFF FLAG NO
[2025-05-22 14:00] LABS: Hematocrit 41.3 % (42.0-52.0); Hemoglobin 14.0 g/dl (14.0-18.0); Imm Gran Abs Auto 0.05 X10*3/uL (0.00-0.03); Imm Gran Pct Auto 0.7 % (0.0-0.4); Lymphocytes Absolute Auto 2.4 X10*3/uL (1.2-4.9); Mean Corpuscular HGB Conc 33.9 g/dl (31.0-36.0); Mean Corpuscular Hemoglobin 29.3 pg (27.0-33.0); Mean Corpuscular Volume 86.4 fL (80.0-98.0); NRBC Abs Auto 0.000 X10*3/uL (0.0-0.012); NRBC Pct Auto 0.0 /100WBC (0.0-0.2); Platelet Count 220 X10*3/uL (160-400); Red Blood Count 4.78 X10*6/uL (4.60-5.80); White Blood Count 7.0 X10*3/uL (4.8-10.8)
[2025-05-22 14:29] LABS: Alanine Aminotransferase 19 U/L (0-40); Albumin Level 4.7 g/dL (3.5-5.0); Alkaline Phosphatase 81 U/L (39-117); Anion Gap 12 (12-20); Aspartate Amino Transferase 23 U/L (5-37); Blood Urea Nitrogen 11 mg/dL (9-16); Calcium 9.4 mg/dL (8.4-10.2); Carbon Dioxide 28 mmol/L (22-29); Chloride 105 mmol/L (96-108); Estimated Glomerular Filt Rate > 60; Potassium 3.8 mmol/L (3.3-5.1); Sodium 141 mmol/L (135-145); Total Protein 7.4 g/dL (6.5-8.0)
== END 2025-05-22 13:35 | disposition home or self-care (01) ==
LOC: HO.LAB 13:34
PROVIDERS: PCP Student in an Organized Health Care Education/Training Program; Visit Provider Student in an Organized Health Care Education/Training Program
DX: M13.80 Other specified arthritis, unspecified site (principal)
CPT/HCPCS: 36415; 80053; 85025; 85652; 86140